=== PATIENT | male | born 1935 | race Caucasian/White ===

== ENCOUNTER 2020-08-19 20:49 | Inpatient (IN) | payer MEDICARE ==
--- NOTE | 2020-08-19 21:04 | ED ---
SOB HPI - General Chief Complaint: Shortness of Breath Stated Complaint: AILEEN Source: patient, EMS Mode of arrival: EMS Limitations: no limitations - History of Present Illness Initial Comments: Og is an 85-year-old male who presents to the ER today by ambulance from [facility]. Patient arrived at [facility] today after an admission to an outside hospital for treatment of osteomyelitis of the left toes. Patient has a PICC in place, and is receiving IV antibiotics. EMS was contacted night patient was found to have a fever, increased work of breathing and shortness of breath. Upon EMS arrival patient had oxygen saturation of 81% he was placed on CPAP for transport. Patient received 40 mg IV Lasix and a dose of Tylenol prior to coming to the ER. - Related Data Home Medications Medication Instructions Recorded Confirmed Allopurinol [Zyloprim] 100 mg PO DAILY@0800 08/19/20 08/19/20 Apixaban [Eliquis] 2.5 mg PO BID@0800,1700 08/19/20 08/19/20 INSULIN LISPRO (humaLOG) [humaLOG] See Protocol SQ ACHS 08/19/20 08/19/20 Insulin Glargine [Lantus] 15 unit SQ HS@2100 08/19/20 08/19/20 Insulin Glargine [Lantus] 20 unit SQ DAILY@0800 08/19/20 08/19/20 Lasix 10mg/Ml 40 mg IV ONCE 08/19/20 08/19/20 Levothyroxine Sodium [Synthroid] 100 mcg PO DAILY@0600 08/19/20 08/19/20 Magic Butt Paste 1 applic TOPICAL TID 08/19/20 08/19/20 Magnesium Hydroxide [Milk of 2,400 ml PO DAILY PRN 08/19/20 08/19/20 Magnesia] Na Phos,M-B/Na Phos,Di-Ba [Fleet 133 ml RECTAL DAILY PRN 08/19/20 08/19/20 Adult] Terazosin HCl [Hytrin] 10 mg PO DAILY@1700 08/19/20 08/19/20 amLODIPine [Norvasc] 10 mg PO DAILY@0800 08/19/20 08/19/20 bisacodyL [Dulcolax] 10 mg RECTAL DAILY PRN 08/19/20 08/19/20 hydrALAZINE HCL [Apresoline] 25 mg PO BID@0800,1700 08/19/20 08/19/20 Allergies Allergy/AdvReac Type Severity Reaction Status Date / Time No Known Allergies Allergy Verified 08/19/20 21:04 Review of Systems ROS Statement: Those systems with pertinent positive or pertinent negative responses have been documented in the HPI. ROS Other: All systems not noted in ROS Statement are negative. Past Medical History Past Medical History: Diabetes Mellitus, Hypertension, Renal Disease History of Any Multi-Drug Resistant Organisms: MRSA Date of last positivie culture/infection: 2020 Past Surgical History: No Surgical Hx Reported Past Psychological History: No Psychological Hx Reported Smoking Status: Former smoker Past Alcohol Use History: Rare Past Drug Use History: None Reported General Exam - General Exam Comments Initial Comments: Physical Exam GENERAL: Morbidly obese chronically ill-appearing gentleman in moderate respiratory distress HENT: Normocephalic, Atraumatic. EYES: PERRL, EOMI PULMONARY: Crackles in all lung reeves CARDIOVASCULAR: There is a regular rate and rhythm without any murmurs gallops or rubs. ABDOMEN: Obese, soft SKIN: Pale, skin color changes of bilateral lower extremities consistent with chronic venous stasis : Palacios catheter in place NEUROLOGIC: Patient is alert and oriented x3. Moving all extremities spontaneously MUSCULOSKELETAL: Chronic wound left toes PSYCHIATRIC: Normal psychiatric evaluation. Limitations: no limitations Course Vital Signs 08/19/20 08/19/20 08/19/20 20:52 21:20 22:38 Temperature 102.8 F H 100.8 F H Pulse Rate 83 Respiratory 20 22 Rate Blood Pressure 146/60 O2 Sat by Pulse 91 L Oximetry Medical Decision Making - Medical Decision Making Patient was seen and evaluated upon arrival emergency department except patient was noted to be in moderate respiratory distress appear to be in flash pulmonary edema he was placed on BiPAP with high settings due to his Oddi habitus Labs were obtained and resulted with multiple significant abnormalities including but not limited to leukocytosis likely related to osteomyelitis, mild hyperkalemia, elevated BUN and creatinine, hyponatremia The patient's respiratory status is improved significantly on BiPAP he's which more comfortable, heart rate has improved, oxygenation has improved Patient is agreeable to admission for treatment of congestive heart failure and flash pulmonary edema Patient care was discussed with Dr. Bran who accepts admission for Dr. astudillo, Dr. Wood on consult for pulmonology, requests consult to cardiology. - Lab Data Result diagrams: 08/19/20 21:35 08/19/20 21:35 Lab Results 08/19/20 08/19/20 08/19/20 Range/Units 21:35 21:35 21:35 WBC 21.3 H (3.8-10.6) k/uL RBC 3.85 L (4.30-5.90) m/uL Hgb 11.7 L (13.0-17.5) gm/dL Hct 35.7 L (39.0-53.0) % MCV 92.7 (80.0-100.0) fL MCH 30.4 (25.0-35.0) pg MCHC 32.8 (31.0-37.0) g/dL RDW 14.1 (11.5-15.5) % Plt Count 201 (150-450) k/uL MPV 7.9 Neutrophils % 91 % Lymphocytes % 2 % Monocytes % 7 % Eosinophils % 0 % Basophils % 0 % Neutrophils # 19.4 H (1.3-7.7) k/uL Lymphocytes # 0.4 L (1.0-4.8) k/uL Monocytes # 1.4 H (0-1.0) k/uL Eosinophils # 0.0 (0-0.7) k/uL Basophils # 0.0 (0-0.2) k/uL PT 10.6 (9.0-12.0) sec INR 1.0 (<1.2) APTT 28.1 (22.0-30.0) sec Sodium (137-145) mmol/L Potassium (3.5-5.1) mmol/L Chloride (98-107) mmol/L Carbon Dioxide (22-30) mmol/L Anion Gap mmol/L BUN (9-20) mg/dL Creatinine (0.66-1.25) mg/dL Est GFR (CKD-EPI)AfAm (>60 ml/min/1.73 sqM) Est GFR (CKD-EPI)NonAf (>60 ml/min/1.73 sqM) Glucose (74-99) mg/dL Plasma Lactic Acid Daniel (0.7-2.0) mmol/L Calcium (8.4-10.2) mg/dL Total Bilirubin (0.2-1.3) mg/dL AST (17-59) U/L ALT (4-49) U/L Alkaline Phosphatase (38-126) U/L Troponin I (0.000-0.034) ng/mL NT-Pro-B Natriuret Pep pg/mL Total Protein (6.3-8.2) g/dL Albumin (3.5-5.0) g/dL Urine Color Yellow Urine Appearance Cloudy (Clear) Urine pH 5.0 (5.0-8.0) Ur Specific Ethel 1.011 (1.001-1.035) Urine Protein 1+ H (Negative) Urine Glucose (UA) Negative (Negative) Urine Ketones Negative (Negative) Urine Blood Large H (Negative) Urine Nitrite Negative (Negative) Urine Bilirubin Negative (Negative) Urine Urobilinogen <2.0 (<2.0) mg/dL Ur Leukocyte Esterase Small H (Negative) Urine RBC >182 H (0-5) /hpf Urine WBC 4 (0-5) /hpf Ur Squamous Epith Cells <1 (0-4) /hpf Urine Bacteria Rare H (None) /hpf Urine Mucus Rare H (None) /hpf 08/19/20 08/19/20 08/19/20 Range/Units 21:35 21:35 21:35 WBC (3.8-10.6) k/uL RBC (4.30-5.90) m/uL Hgb (13.0-17.5) gm/dL Hct (39.0-53.0) % MCV (80.0-100.0) fL MCH (25.0-35.0) pg MCHC (31.0-37.0) g/dL RDW (11.5-15.5) % Plt Count (150-450) k/uL MPV Neutrophils % % Lymphocytes % % Monocytes % % Eosinophils % % Basophils % % Neutrophils # (1.3-7.7) k/uL Lymphocytes # (1.0-4.8) k/uL Monocytes # (0-1.0) k/uL Eosinophils # (0-0.7) k/uL Basophils # (0-0.2) k/uL PT (9.0-12.0) sec INR (<1.2) APTT (22.0-30.0) sec Sodium 127 L (137-145) mmol/L Potassium 5.3 H (3.5-5.1) mmol/L Chloride 102 (98-107) mmol/L Carbon Dioxide 16 L (22-30) mmol/L Anion Gap 9 mmol/L BUN 70 H (9-20) mg/dL Creatinine 2.53 H (0.66-1.25) mg/dL Est GFR (CKD-EPI)AfAm 26 (>60 ml/min/1.73 sqM) Est GFR (CKD-EPI)NonAf 22 (>60 ml/min/1.73 sqM) Glucose 260 H (74-99) mg/dL Plasma Lactic Acid Daniel 1.4 (0.7-2.0) mmol/L Calcium 8.5 (8.4-10.2) mg/dL Total Bilirubin 0.4 (0.2-1.3) mg/dL AST 30 (17-59) U/L ALT 22 (4-49) U/L Alkaline Phosphatase 84 (38-126) U/L Troponin I 0.034 (0.000-0.034) ng/mL NT-Pro-B Natriuret Pep pg/mL Total Protein 5.6 L (6.3-8.2) g/dL Albumin 2.6 L (3.5-5.0) g/dL Urine Color Urine Appearance (Clear) Urine pH (5.0-8.0) Ur Specific Ethel (1.001-1.035) Urine Protein (Negative) Urine Glucose (UA) (Negative) Urine Ketones (Negative) Urine Blood (Negative) Urine Nitrite (Negative) Urine Bilirubin (Negative) Urine Urobilinogen (<2.0) mg/dL Ur Leukocyte Esterase (Negative) Urine RBC (0-5) /hpf Urine WBC (0-5) /hpf Ur Squamous Epith Cells (0-4) /hpf Urine Bacteria (None) /hpf Urine Mucus (None) /hpf 08/19/20 Range/Units 21:35 WBC (3.8-10.6) k/uL RBC (4.30-5.90) m/uL Hgb (13.0-17.5) gm/dL Hct (39.0-53.0) % MCV (80.0-100.0) fL MCH (25.0-35.0) pg MCHC (31.0-37.0) g/dL RDW (11.5-15.5) % Plt Count (150-450) k/uL MPV Neutrophils % % Lymphocytes % % Monocytes % % Eosinophils % % Basophils % % Neutrophils # (1.3-7.7) k/uL Lymphocytes # (1.0-4.8) k/uL Monocytes # (0-1.0) k/uL Eosinophils # (0-0.7) k/uL Basophils # (0-0.2) k/uL PT (9.0-12.0) sec INR (<1.2) APTT (22.0-30.0) sec Sodium (137-145) mmol/L Potassium (3.5-5.1) mmol/L Chloride (98-107) mmol/L Carbon Dioxide (22-30) mmol/L Anion Gap mmol/L BUN (9-20) mg/dL Creatinine (0.66-1.25) mg/dL Est GFR (CKD-EPI)AfAm (>60 ml/min/1.73 sqM) Est GFR (CKD-EPI)NonAf (>60 ml/min/1.73 sqM) Glucose (74-99) mg/dL Plasma Lactic Acid Daniel (0.7-2.0) mmol/L Calcium (8.4-10.2) mg/dL Total Bilirubin (0.2-1.3) mg/dL AST (17-59) U/L ALT (4-49) U/L Alkaline Phosphatase (38-126) U/L Troponin I (0.000-0.034) ng/mL NT-Pro-B Natriuret Pep 3880 pg/mL Total Protein (6.3-8.2) g/dL Albumin (3.5-5.0) g/dL Urine Color Urine Appearance (Clear) Urine pH (5.0-8.0) Ur Specific Ethel (1.001-1.035) Urine Protein (Negative) Urine Glucose (UA) (Negative) Urine Ketones (Negative) Urine Blood (Negative) Urine Nitrite (Negative) Urine Bilirubin (Negative) Urine Urobilinogen (<2.0) mg/dL Ur Leukocyte Esterase (Negative) Urine RBC (0-5) /hpf Urine WBC (0-5) /hpf Ur Squamous Epith Cells (0-4) /hpf Urine Bacteria (None) /hpf Urine Mucus (None) /hpf - EKG Data -: EKG Interpreted by Me EKG Comments: EKG was obtained due to complaint of shortness of breath, EKG was obtained at 210, EKG is limited by significant respiratory artifact due to the patient's respiratory distress, rate is approximately 86, this is a narrow complex regular rhythm, I believe P waves are present however significant artifact limits further evaluation, there are no significant ST elevations or depressions or evidence of ischemia or infarction Disposition Clinical Impression: Flash pulmonary edema, Congestive heart failure, Osteomyelitis, Morbid obesity, Hyperglycemia due to type 2 diabetes mellitus Disposition: ADMITTED IP TO THIS HOSP Condition: Poor Referrals: Yaniv Fisher DO [Primary Care Provider] - 1-2 days
--- NOTE | 2020-08-19 21:54 | XR ---
EXAMINATION TYPE: XR chest 1V portable DATE OF EXAM: 08/19/2020 COMPARISON: None HISTORY: Short of breath TECHNIQUE: 2 views FINDINGS: There is pulmonary vascular congestion. Heart is enlarged. There is right central venous ca theter with tip in the superior vena cava. IMPRESSION: Congestive heart failure. There are probably bilateral pleural effusions. Exam limited by patient's size.
[2020-08-19 22:09] LABS: Basophils % (A) 0 %; Eosinophils % (A) 0 %; HCT 35.7 % (39.0-53.0); HGB 11.7 gm/dL (13.0-17.5); Lymphocytes # (A) 0.4 k/uL (1.0-4.8); Lymphocytes % (A) 2 %; MCH 30.4 pg (25.0-35.0); MCHC 32.8 g/dL (31.0-37.0); MCV 92.7 fL (80.0-100.0); Mean Platelet Volume 7.9; Monocytes # (A) 1.4 k/uL (0-1.0); Monocytes % (A) 7 %; Neutrophils # (A) 19.4 k/uL (1.3-7.7); Neutrophils % (A) 91 %; Platelet Count 201 k/uL (150-450); RBC 3.85 m/uL (4.30-5.90); RDW 14.1 % (11.5-15.5); WBC 21.3 k/uL (3.8-10.6)
[2020-08-19 22:21] LABS: Appearance,Urine Cloudy (Clear); Bacteria,Urine Rare /hpf; Bilirubin,Urine Negative (Negative); Blood,Urine Large (Negative); Color,Urine Yellow; Glucose,Urine (UA) Negative (Negative); Ketones,Urine Negative (Negative); Leukocyte Esterase,Urine Small (Negative); Mucus,Urine Rare /hpf; Nitrite,Urine Negative (Negative); Protein,Urine 1+ (Negative); RBC,Urine >182 /hpf (0-5); Specific Gravity,Urine 1.011 (1.001-1.035); Squamous Epithelial Cell,Urine <1 /hpf (0-4); Urobilinogen,Urine <2.0 mg/dL (<2.0); WBC,Urine 4 /hpf (0-5)
[2020-08-19 22:23] LABS: Partial Thromboplastin Time 28.1 sec (22.0-30.0); Prothrombin Time 10.6 sec (9.0-12.0)
[2020-08-19 22:24] LABS: Albumin 2.6 g/dL (3.5-5.0); Calcium 8.5 mg/dL (8.4-10.2); Potassium 5.3 mmol/L (3.5-5.1); Total Bilirubin 0.4 mg/dL (0.2-1.3); Total Protein 5.6 g/dL (6.3-8.2)
[2020-08-19] MEDS ORDERED: NALOXONE 0.4 MG/ML 1 ML VIAL IV PRN (22:58)
[2020-08-19] MEDS ORDERED: INSULIN REGULAR 100 UNIT/ML VIAL (IV) SQ ONE (23:02)
[2020-08-20] MEDS ORDERED: INSULIN ASPART (NovoLOG) 100 UNIT/ML VIAL SQ SCH (07:30)
[2020-08-20 08:35] LABS: Glucose,Whole Blood 254 mg/dL (75-99)
[2020-08-20] MEDS: hydrALAZINE HCL 25 MG TAB PO SCH ×2 (08:59→17:36)
[2020-08-20] MEDS: APIXABAN 2.5 MG TABLET PO SCH ×2 (08:59→17:36)
[2020-08-20] MEDS: LEVOTHYROXINE 100 MCG TAB PO SCH (08:59)
[2020-08-20] MEDS: amLODIPine 10 MG TAB PO SCH (09:00)
[2020-08-20] MEDS ORDERED: NON FORMULARY DRUG (Magic Butt Paste 1 APPLIC) TOPICAL SCH (09:00)
[2020-08-20] MEDS ORDERED: bisacodyL 10 MG SUPP RECTAL PRN (10:51)
--- NOTE | 2020-08-20 11:27 | P.CNPUL ---
History of Present Illness Consult date: 08/20/20 Reason for consult: dyspnea, hypoxemia Chief complaint: Shortness of breath desaturation History of present illness: Patient is a 85-year-old male presented in emergency department from [facility] why EMS, patient was diagnosed ostomy mellitus of left second toe has a PICC line and has been getting daptomycin, he arrived one day prior to numbing into the hospital, patient spiked a fever with increasing shortness of breath oxygen saturation dropped down to 81%, patient was transported to the emergency department for further evaluation oxygen saturation was just 81%, patient was placed on CPAP in emergency department was switched to BiPAP, 03/02 with 50% oxygen, patient has been on now 5 L oxygen feeling better, his past medical history is morbid obesity hypertension hypertensive cardiovascular disease diabetes mellitus history of MRSA infection, patient also has chronic atrial fibrillation on direct anticoagulant, patient has been noted to have leukocytosis with WBC count of 21,000 hyponatremia BUN/creatinine 70 and 2.53, bicarb is just 16, chest x-ray CHF-like finding with bilateral pleural effusion other significant labs include sodium of 127, BUN/creatinine of 70 and 2.53, Covid 19 is negative, Review of Systems All systems: negative Past Medical History Past Medical History: Diabetes Mellitus, Hypertension, Renal Disease History of Any Multi-Drug Resistant Organisms: MRSA Date of last positivie culture/infection: 2020 Past Surgical History: No Surgical Hx Reported Past Psychological History: No Psychological Hx Reported Smoking Status: Former smoker Past Alcohol Use History: Rare Past Drug Use History: None Reported Medications and Allergies Home Medications Medication Instructions Recorded Confirmed Type Allopurinol [Zyloprim] 100 mg PO DAILY@0800 08/19/20 08/19/20 History Apixaban [Eliquis] 2.5 mg PO BID@0800,1700 08/19/20 08/19/20 History INSULIN LISPRO (humaLOG) [humaLOG] See Protocol SQ ACHS 08/19/20 08/19/20 History Insulin Glargine [Lantus] 15 unit SQ HS@2100 08/19/20 08/19/20 History Insulin Glargine [Lantus] 20 unit SQ DAILY@0800 08/19/20 08/19/20 History Lasix 10mg/Ml 40 mg IV ONCE 08/19/20 08/19/20 History Levothyroxine Sodium [Synthroid] 100 mcg PO DAILY@0600 08/19/20 08/19/20 History Magic Butt Paste 1 applic TOPICAL TID 08/19/20 08/19/20 History Magnesium Hydroxide [Milk of 2,400 ml PO DAILY PRN 08/19/20 08/19/20 History Magnesia] Na Phos,M-B/Na Phos,Di-Ba [Fleet 133 ml RECTAL DAILY PRN 08/19/20 08/19/20 History Adult] Terazosin HCl [Hytrin] 10 mg PO DAILY@1700 08/19/20 08/19/20 History amLODIPine [Norvasc] 10 mg PO DAILY@0800 08/19/20 08/19/20 History bisacodyL [Dulcolax] 10 mg RECTAL DAILY PRN 08/19/20 08/19/20 History hydrALAZINE HCL [Apresoline] 25 mg PO BID@0800,1700 08/19/20 08/19/20 History Allergies Allergy/AdvReac Type Severity Reaction Status Date / Time No Known Allergies Allergy Verified 08/19/20 21:04 Physical Exam Vitals: Vital Signs Temp Pulse Resp BP Pulse Ox 08/20/20 11:16 66 20 117/71 91 L 08/20/20 09:42 64 20 121/59 91 L 08/20/20 09:08 75 18 123/68 08/20/20 03:01 98.7 F 08/20/20 01:53 69 18 120/56 97 08/19/20 23:21 73 18 120/56 97 08/19/20 22:38 100.8 F H 08/19/20 21:20 22 08/19/20 20:52 102.8 F H 83 20 146/60 91 L Intake and Output 08/19/20 08/20/20 08/20/20 22:59 06:59 14:59 Other: Weight 146.964 kg - Constitutional General appearance: mild distress, morbidly obese - EENT Eyes: PERRLA Ears: bilateral: normal - Neck Carotids: bilateral: upstroke normal - Respiratory Respiratory: bilateral: diminished, rales - Cardiovascular Rhythm: regular Heart sounds: normal: S1, S2 - Neurologic Neurologic: CNII-XII intact - Musculoskeletal Musculoskeletal: gait normal, generalized weakness, strength equal bilaterally - Psychiatric Psychiatric: A&O x's 3, appropriate affect, intact judgment & insight Results - Laboratory Findings CBC and BMP: 08/19/20 21:35 08/19/20 21:35 PT/INR, D-dimer PT 10.6 sec (9.0-12.0) 08/19/20 21:35 INR 1.0 (<1.2) 08/19/20 21:35 Abnormal lab findings: Abnormal Labs 08/19/20 08/19/20 08/19/20 21:35 21:35 21:35 WBC 21.3 H RBC 3.85 L Hgb 11.7 L Hct 35.7 L Neutrophils # 19.4 H Lymphocytes # 0.4 L Monocytes # 1.4 H Sodium 127 L Potassium 5.3 H Carbon Dioxide 16 L BUN 70 H Creatinine 2.53 H Glucose 260 H POC Glucose (mg/dL) Total Protein 5.6 L Albumin 2.6 L Urine Protein 1+ H Urine Blood Large H Ur Leukocyte Esterase Small H Urine RBC >182 H Urine Bacteria Rare H Urine Mucus Rare H 08/20/20 08:33 WBC RBC Hgb Hct Neutrophils # Lymphocytes # Monocytes # Sodium Potassium Carbon Dioxide BUN Creatinine Glucose POC Glucose (mg/dL) 254 H Total Protein Albumin Urine Protein Urine Blood Ur Leukocyte Esterase Urine RBC Urine Bacteria Urine Mucus - Diagnostic Findings Chest x-ray: report reviewed, image reviewed Assessment and Plan Assessment: Acute exacerbation of congestive heart failure likely acute on chronic systolic heart failure Acute hypoxic respiratory failure Likely sleep disorder breathing and sleep apnea Osteomyelitis Hypertension hypertensive cardiovascular disease Plan: Gentle diuresis BiPAP support each night and when necessary during the day Supplemental oxygen Continue IV daptomycin Titrated oxygen down as tolerated Patient has been resumed on his home medications Monitor clinical course closely further plan of care as per clinical response of the patient Time with Patient: Greater than 30
[2020-08-20] MEDS ORDERED: INSULIN DETEMIR (LEVEMIR) 100 UNIT/ML SYR SQ SCH (11:30)
--- NOTE | 2020-08-20 11:40 | P.CRDCN ---
History of Present Illness Consult date: 08/20/20 Chief complaint: Shortness of breath History of present illness: This is a very pleasant 85-year-old gentleman with a past medical history signif icant for morbid obesity and paroxysmal atrial fibrillation as well as hypertension and dyslipidemia and diabetes and chronic kidney disease was transferred from [facility] facility to the emergency department here for further evaluation of shortness of breath. The patient was admitted to [facility] care facility for rehabilitation because he was diagnosed with osteomyelitis of the left foot. He had a PICC line placed. He was receiving antibiotic. Apparently at the senior care the patient was not feeling well. He was more short of breath and potentially he was experiencing fever. EMS was called and the patient was found to be de-satting and at that point he was transferred to the emergency department.. He denies any symptoms of chest pain or chest discomfort. He stated that he was experiencing shortness of breath. No dizziness or lightheadedness and no feeling of heart racing or fluttering. He was placed on BiPAP here with improvement in his oxygen saturation. The chest x-ray showed findings consistent was heart failure. The EKG showed sinus rhythm with diffuse baseline artifact. WBC came in to be elevated. The patient also troponin came in to be elevated. With abnormal was his baseline renal function stents at. No prior echocardiogram. He was seen by the pulmonary service. When he was examined this morning is very hard to tell if he does have a JVD giving his body habitus. He does have chronic bilateral lower extended the skin changes and mild bilateral lower extremities edema. Past Medical History Past Medical History: Diabetes Mellitus, Hypertension, Renal Disease History of Any Multi-Drug Resistant Organisms: MRSA Date of last positivie culture/infection: 2020 Past Surgical History: No Surgical Hx Reported Past Psychological History: No Psychological Hx Reported Smoking Status: Former smoker Past Alcohol Use History: Rare Past Drug Use History: None Reported Medications and Allergies Home Medications Medication Instructions Recorded Confirmed Type Allopurinol [Zyloprim] 100 mg PO DAILY@0800 08/19/20 08/19/20 History Apixaban [Eliquis] 2.5 mg PO BID@0800,1700 08/19/20 08/19/20 History INSULIN LISPRO (humaLOG) [humaLOG] See Protocol SQ ACHS 08/19/20 08/19/20 History Insulin Glargine [Lantus] 15 unit SQ HS@2100 08/19/20 08/19/20 History Insulin Glargine [Lantus] 20 unit SQ DAILY@0800 08/19/20 08/19/20 History Lasix 10mg/Ml 40 mg IV ONCE 08/19/20 08/19/20 History Levothyroxine Sodium [Synthroid] 100 mcg PO DAILY@0600 08/19/20 08/19/20 History Magic Butt Paste 1 applic TOPICAL TID 08/19/20 08/19/20 History Magnesium Hydroxide [Milk of 2,400 ml PO DAILY PRN 08/19/20 08/19/20 History Magnesia] Na Phos,M-B/Na Phos,Di-Ba [Fleet 133 ml RECTAL DAILY PRN 08/19/20 08/19/20 History Adult] Terazosin HCl [Hytrin] 10 mg PO DAILY@1700 08/19/20 08/19/20 History amLODIPine [Norvasc] 10 mg PO DAILY@0800 08/19/20 08/19/20 History bisacodyL [Dulcolax] 10 mg RECTAL DAILY PRN 08/19/20 08/19/20 History hydrALAZINE HCL [Apresoline] 25 mg PO BID@0800,1700 08/19/20 08/19/20 History Allergies Allergy/AdvReac Type Severity Reaction Status Date / Time No Known Allergies Allergy Verified 08/19/20 21:04 Physical Exam Vitals: Vital Signs Temp Pulse Resp BP Pulse Ox 08/20/20 11:16 66 20 117/71 91 L 08/20/20 09:42 64 20 121/59 91 L 08/20/20 09:08 75 18 123/68 08/20/20 03:01 98.7 F 08/20/20 01:53 69 18 120/56 97 08/19/20 23:21 73 18 120/56 97 08/19/20 22:38 100.8 F H 08/19/20 21:20 22 08/19/20 20:52 102.8 F H 83 20 146/60 91 L Intake and Output 08/19/20 08/20/20 08/20/20 22:59 06:59 14:59 Other: Weight 146.964 kg - Constitutional General appearance: no acute distress - Respiratory Respiratory: bilateral: diminished - Cardiovascular Rhythm: regular Heart sounds: normal: S1, S2 Abnormal Heart Sounds: systolic murmur Results 08/19/20 21:35 08/19/20 21:35 Cardiac Enzymes 08/19/20 08/19/20 Range/Units 21:35 21:35 AST 30 (17-59) U/L Troponin I 0.034 (0.000-0.034) ng/mL Coagulation 08/19/20 Range/Units 21:35 PT 10.6 (9.0-12.0) sec APTT 28.1 (22.0-30.0) sec CBC 08/19/20 Range/Units 21:35 WBC 21.3 H (3.8-10.6) k/uL RBC 3.85 L (4.30-5.90) m/uL Hgb 11.7 L (13.0-17.5) gm/dL Hct 35.7 L (39.0-53.0) % Plt Count 201 (150-450) k/uL Comprehensive Metabolic Panel 08/19/20 Range/Units 21:35 Sodium 127 L (137-145) mmol/L Potassium 5.3 H (3.5-5.1) mmol/L Chloride 102 (98-107) mmol/L Carbon Dioxide 16 L (22-30) mmol/L BUN 70 H (9-20) mg/dL Creatinine 2.53 H (0.66-1.25) mg/dL Glucose 260 H (74-99) mg/dL Calcium 8.5 (8.4-10.2) mg/dL AST 30 (17-59) U/L ALT 22 (4-49) U/L Alkaline Phosphatase 84 (38-126) U/L Total Protein 5.6 L (6.3-8.2) g/dL Albumin 2.6 L (3.5-5.0) g/dL Current Medications Generic Name Dose Route Start Last Admin Trade Name Freq PRN Reason Stop Dose Admin Allopurinol 100 mg 08/20/20 08:00 Allopurinol 100 Mg Tab PO DAILY@0800 [facility] Amlodipine Besylate 10 mg 08/20/20 08:00 08/20/20 09:00 Amlodipine 10 Mg Tab PO 10 mg DAILY@0800 [facility] Administration Apixaban 2.5 mg 08/20/20 08:00 08/20/20 08:59 Apixaban 2.5 Mg Tablet PO 2.5 mg BID@0800,1700 [facility] Administration Bisacodyl 10 mg 08/20/20 10:51 Bisacodyl 10 Mg Supp RECTAL DAILY PRN Constipation Doxazosin Mesylate 8 mg 08/20/20 17:00 Doxazosin 4 Mg Tab PO DAILY@1700 [facility] Hydralazine HCl 25 mg 08/20/20 08:00 08/20/20 08:59 Hydralazine Hcl 25 Mg Tab PO 25 mg BID@0800,1700 [facility] Administration Daptomycin 800 mg/ Sodium 50 mls @ 100 mls/hr 08/20/20 08:00 08/20/20 09:40 Chloride IVPB 100 mls/hr Q24H LEONARDO Administration Protocol Insulin Aspart 0 unit 08/20/20 12:30 Insulin Aspart (Novolog) 100 Unit/Ml Vial SQ ACHS [facility] Protocol Insulin Detemir 20 unit 08/20/20 11:30 Insulin Detemir (Levemir) 100 Unit/Ml Syr SQ DAILY@0800 [facility] Levothyroxine Sodium 100 mcg 08/20/20 06:00 08/20/20 08:59 Levothyroxine 100 Mcg Tab PO 100 mcg DAILY@0600 [facility] Administration Naloxone HCl 0.2 mg 08/19/20 22:58 Naloxone 0.4 Mg/Ml 1 Ml Vial IV Q2M PRN Opioid Reversal Intake and Output 08/19/20 08/20/20 08/20/20 22:59 06:59 14:59 Other: Weight 146.964 kg 08/19/20 21:35 08/19/20 21:35 Assessment and Plan Assessment: Assessment #1 acute hypoxic respiratory failure #2 probably underlying pneumonia #3 very mild component of heart failure if there is any #4 paroxysmal atrial fibrillation #5 morbid obesity #6 multiple comorbid conditions #7 hypertension #8 chronic kidney disease Plan #1 I would avoid any IV diuretics at this point giving the patient abnormal creatinine and the symptoms which consistent with a pneumonia more than heart failure #2 if he did not respond to antibiotic we might consider doing a right heart catheterization to assess his filling pressure #3 obtain an echocardiogram was Doppler #4 monitor the kidney function #5 follow-up with the patient
[2020-08-20 12:25] LABS: Glucose,Whole Blood 277 mg/dL (75-99)
[2020-08-20] MEDS: INSULIN ASPART (NovoLOG) 100 UNIT/ML VIAL SQ SCH ×3 (12:57→21:05)
[2020-08-20] MEDS: CEFEPIME 2 GM in SODIUM CHLORIDE 0.9% 100 ML IVPB SCH (13:51)
[2020-08-20] MEDS: SODIUM CHLORIDE 0.9% 1,000 ML IV SCH (13:52)
--- NOTE | 2020-08-20 16:42 | US ---
EXAMINATION TYPE: US kidneys/renal and bladder DATE OF EXAM: 08/20/2020 COMPARISON: NONE CLINICAL HISTORY: renal failure. Renal failure limited due to body habitus EXAM MEASUREMENTS: Right Kidney: 10.9 x 5.1 x 5.0 cm Left Kidney: 9.7 x 5.2 x 3.3 cm Right Kidney: No hydronephrosis Left Kidney: No hydronephrosis Bladder: Not visualized Bilateral Jets seen: No There is loss of normal cortical medullary differentiation bilaterally, there is increased cortical e chogenicity, there is cortical thinning. Exam is somewhat limited technically. IMPRESSION: Exam is limited. Findings consistent with medical renal disease.
[2020-08-20 17:08] LABS: Glucose,Whole Blood 223 mg/dL (75-99)
[2020-08-20] MEDS: DOXAZOSIN 4 MG TAB PO SCH (17:36)
[2020-08-20] MEDS: allopurinoL 100 MG TAB PO SCH (17:36)
--- NOTE | 2020-08-20 20:33 | P.HPIM ---
History of Present Illness H&P Date: 08/20/20 Chief Complaint: Short of breath History of presenting complaint: This is a pleasant 85-year-old patient of Dr. Fisher. Chronic stable medical conditions include diabetes, hypertension. Patient was at [facility] from August 13 through August 18. With left second toe osteomyelitis/MRSA- patient to get IV daptomycin 800 mg a day for 6 weeks from August 19.. New-onset of atrial fibrillation, has underlying chronic kidney disease stage III. Yesterday patient has significant urinary retention and [facility] and had a Palacios catheter placed. Has BPH. Also got a bedsore. Peripheral neuropathy hypothyroid gout. Patient now presents with increasing shortness of breath. Cough with little sputum. Fever. Rather tired. Review of systems: GEN.: Tired, fever EYES: None HEENT: None NECK: None RESPIRATORY: As above CARDIOVASCULAR: None GASTROINTESTINAL: None GENITOURINARY: Palacios catheter placed 24 hours ago. MUSCULOSKELETAL: Joint pains LYMPHATICS: None HEMATOLOGICAL: None PSYCHIATRY: None NEUROLOGICAL: None Past medical history to include: Left second toe ostium mellitus/MRSA being currently treated, atrial fibrillation, chronic kidney disease stage III, BPH with urinary retention now with a Palacios catheter, diabetes type 2, peripheral neuropathy, hypothyroid, gout Social history: Patient smoked for a few years stopped quite a few years ago. Alcohol rarely. Currently at [facility]. Family history: Reviewed, noncontributory to presentation Physical examination: VITAL SIGNS: 102.8, 83, 20, 1 46 x 60, 91% on 15 L nonrebreather upon present ation GENERAL: BMI 49.3, laying in bed, tired, awake. EYES: Pupils equal. Conjunctiva normal. HEENT: External appearance of nose and ears normal, oral cavity grossly normal. NECK: JVD not raised; masses not palpable. HEART: First and second heart sounds are normal; no edema. LUNGS:[ Respiratory rate increased; decreased breath sounds, possible crackles ABDOMEN: Soft, nontender, liver spleen not palpable, no masses palpable. Palacios catheter PSYCH: Alert and oriented x3; mood and affect tiredl. MUSCULAR skeletal: Evidence of OA NEUROLOGICAL: Cranial nerves grossly intact; no facial asymmetry, power and sensation grossly intact. LYMPHATICS: No lymph nodes palpable in the axilla and neck INVESTIGATIONS, reviewed in the clinical context: WBC 21.3 hemoglobin 11.7 platelets 201 sodium 127 potassium 5.3 bun 70 creatinine 2.53 glucose 260 proBNP 3880 troponin I 0.034 UA positive for small leukoesterase, RBC greater than 182 Coronavirus [PCR]-not detected EKG tracing personally reviewed by me-normal sinus rhythm, with some possible ST segment changes Chest x-ray film personally reviewed by me-underpenetrated. Possibly infiltrate. Possible effusion Assessment and plan: -Probable pneumonia suspected gram-negative organism. Patient started IV cefepime -Sepsis from pneumonia On IV antibiotics and fluids -Essential hypertension On hydralazine -Diabetes mellitus type 2, uncontrolled with hyperglycemia We'll place Levemir 28 units in the morning. Follow with sliding scale. -Hypothyroid Continue with Synthroid -BPH with bladder outflow obstruction Palacios catheter was placed August 19. add Flomax. DC trial of Palcaios in 48 hours -Second toe acute osteomyelitis with MRSA, secondary to foreign body Patient to continue 6 weeks of IV daptomycin 800 mg a day from August 19 -Paroxysmal atrial flutter fibrillation currently in sinus rhythm Continue with eliquis -Chronic gout Continue with allopurinol -Hyponatremia Follow labs Patient started IV cefepime. IV fluids. Consultation made to pulmonary, ID. Home medications resumed. Accu-Cheks will be followed. Care was discussed with the patient. Doubt congestive heart failure. Given the complexity and severity of patient's condition expect the patient to be in the hospital at least for 2 overnights Past Medical History Past Medical History: Diabetes Mellitus, Hypertension, Renal Disease History of Any Multi-Drug Resistant Organisms: MRSA Date of last positivie culture/infection: 2020 Past Surgical History: No Surgical Hx Reported Past Psychological History: No Psychological Hx Reported Smoking Status: Former smoker Past Alcohol Use History: Rare Past Drug Use History: None Reported - Past Family History Father Family Medical History: No Reported History Mother Family Medical History: No Reported History Medications and Allergies Home Medications Medication Instructions Recorded Confirmed Type Allopurinol [Zyloprim] 100 mg PO DAILY@0800 08/19/20 08/19/20 History Apixaban [Eliquis] 2.5 mg PO BID@0800,1700 08/19/20 08/19/20 History INSULIN LISPRO (humaLOG) [humaLOG] See Protocol SQ ACHS 08/19/20 08/19/20 History Insulin Glargine [Lantus] 15 unit SQ HS@2100 08/19/20 08/19/20 History Insulin Glargine [Lantus] 20 unit SQ DAILY@0800 08/19/20 08/19/20 History Lasix 10mg/Ml 40 mg IV ONCE 08/19/20 08/19/20 History Levothyroxine Sodium [Synthroid] 100 mcg PO DAILY@0600 08/19/20 08/19/20 History Magic Butt Paste 1 applic TOPICAL TID 08/19/20 08/19/20 History Magnesium Hydroxide [Milk of 2,400 ml PO DAILY PRN 08/19/20 08/19/20 History Magnesia] Na Phos,M-B/Na Phos,Di-Ba [Fleet 133 ml RECTAL DAILY PRN 08/19/20 08/19/20 Hist ory Adult] Terazosin HCl [Hytrin] 10 mg PO DAILY@1700 08/19/20 08/19/20 History amLODIPine [Norvasc] 10 mg PO DAILY@0800 08/19/20 08/19/20 History bisacodyL [Dulcolax] 10 mg RECTAL DAILY PRN 08/19/20 08/19/20 History hydrALAZINE HCL [Apresoline] 25 mg PO BID@0800,1700 08/19/20 08/19/20 History Allergies Allergy/AdvReac Type Severity Reaction Status Date / Time No Known Allergies Allergy Verified 08/19/20 21:04 Physical Exam Vitals: Vital Signs Temp Pulse Resp BP Pulse Ox 08/20/20 09:42 64 20 121/59 91 L 08/20/20 09:08 75 18 123/68 08/20/20 03:01 98.7 F 08/20/20 01:53 69 18 120/56 97 08/19/20 23:21 73 18 120/56 97 08/19/20 22:38 100.8 F H 08/19/20 21:20 22 08/19/20 20:52 102.8 F H 83 20 146/60 91 L Intake and Output 08/19/20 08/20/20 08/20/20 22:59 06:59 14:59 Other: Weight 146.964 kg Results CBC & Chem 7: 08/19/20 21:35 08/19/20 21:35 Labs: Abnormal Lab Results - Last 24 Hours (Table) 08/19/20 08/19/20 08/19/20 Range/Units 21:35 21:35 21:35 WBC 21.3 H (3.8-10.6) k/uL RBC 3.85 L (4.30-5.90) m/uL Hgb 11.7 L (13.0-17.5) gm/dL Hct 35.7 L (39.0-53.0) % Neutrophils # 19.4 H (1.3-7.7) k/uL Lymphocytes # 0.4 L (1.0-4.8) k/uL Monocytes # 1.4 H (0-1.0) k/uL Sodium 127 L (137-145) mmol/L Potassium 5.3 H (3.5-5.1) mmol/L Carbon Dioxide 16 L (22-30) mmol/L BUN 70 H (9-20) mg/dL Creatinine 2.53 H (0.66-1.25) mg/dL Glucose 260 H (74-99) mg/dL POC Glucose (mg/dL) (75-99) mg/dL Total Protein 5.6 L (6.3-8.2) g/dL Albumin 2.6 L (3.5-5.0) g/dL Urine Protein 1+ H (Negative) Urine Blood Large H (Negative) Ur Leukocyte Esterase Small H (Negative) Urine RBC >182 H (0-5) /hpf Urine Bacteria Rare H (None) /hpf Urine Mucus Rare H (None) /hpf 08/20/20 Range/Units 08:33 WBC (3.8-10.6) k/uL RBC (4.30-5.90) m/uL Hgb (13.0-17.5) gm/dL Hct (39.0-53.0) % Neutrophils # (1.3-7.7) k/uL Lymphocytes # (1.0-4.8) k/uL Monocytes # (0-1.0) k/uL Sodium (137-145) mmol/L Potassium (3.5-5.1) mmol/L Carbon Dioxide (22-30) mmol/L BUN (9-20) mg/dL Creatinine (0.66-1.25) mg/dL Glucose (74-99) mg/dL POC Glucose (mg/dL) 254 H (75-99) mg/dL Total Protein (6.3-8.2) g/dL Albumin (3.5-5.0) g/dL Urine Protein (Negative) Urine Blood (Negative) Ur Leukocyte Esterase (Negative) Urine RBC (0-5) /hpf Urine Bacteria (None) /hpf Urine Mucus (None) /hpf
[2020-08-20 20:56] LABS: Glucose,Whole Blood 165 mg/dL (75-99)
[2020-08-20] MEDS: TAMSULOSIN 0.4 MG CAP.ER.24H PO SCH (21:05)
[2020-08-21] MEDS: CEFEPIME 2 GM in SODIUM CHLORIDE 0.9% 100 ML IVPB SCH (02:16)
[2020-08-21 03:21] LABS: Glucose,Whole Blood 171 mg/dL (75-99)
[2020-08-21] MEDS: SODIUM CHLORIDE 0.9% 1,000 ML IV SCH ×2 (04:27→17:55)
[2020-08-21 06:24] LABS: Glucose,Whole Blood 158 mg/dL (75-99)
[2020-08-21] MEDS: LEVOTHYROXINE 100 MCG TAB PO SCH (06:32)
[2020-08-21] MEDS: INSULIN ASPART (NovoLOG) 100 UNIT/ML VIAL SQ SCH ×4 (06:32→21:06)
[2020-08-21 07:54] LABS: Basophils % (A) 0 %; Eosinophils # (A) 0.1 k/uL (0-0.7); Eosinophils % (A) 1 %; HCT 35.8 % (39.0-53.0); HGB 11.6 gm/dL (13.0-17.5); Lymphocytes # (A) 1.1 k/uL (1.0-4.8); Lymphocytes % (A) 7 %; MCH 30.2 pg (25.0-35.0); MCHC 32.3 g/dL (31.0-37.0); MCV 93.6 fL (80.0-100.0); Mean Platelet Volume 7.7; Monocytes # (A) 0.8 k/uL (0-1.0); Monocytes % (A) 5 %; Neutrophils # (A) 13.4 k/uL (1.3-7.7); Neutrophils % (A) 87 %; Platelet Count 231 k/uL (150-450); RBC 3.82 m/uL (4.30-5.90); WBC 15.5 k/uL (3.8-10.6)
[2020-08-21] MEDS ORDERED: INSULIN DETEMIR (LEVEMIR) 100 UNIT/ML SYR SQ SCH (08:00)
[2020-08-21 08:07] LABS: Calcium 8.4 mg/dL (8.4-10.2)
[2020-08-21] MEDS: hydrALAZINE HCL 25 MG TAB PO SCH ×2 (09:17→17:55)
[2020-08-21] MEDS: APIXABAN 2.5 MG TABLET PO SCH ×2 (09:17→17:55)
[2020-08-21] MEDS: amLODIPine 10 MG TAB PO SCH (09:17)
[2020-08-21] MEDS: allopurinoL 100 MG TAB PO SCH (09:18)
--- NOTE | 2020-08-21 11:48 | P.PN ---
Subjective This is a pleasant 85-year-old male past medical history significant for paroxysmal atrial fibrillation, hypertension, dyslipidemia, diabetes mellitus, chronic kidney disease and morbid obesity. He is seen and examined sitting up in bed in no acute distress. He states overall his breathing seems to have improved from admission however not back to baseline entirely. Blood pressure 143/70 heart rate 66 afebrile maintaining oxygen saturation on nasal cannula. Laboratory data reviewed, WBC 15.5, hemoglobin 11.6, platelets 231, sodium 131, potassium 5, creatinine 2.67. GENERAL: Well-appearing, well-nourished and in no acute distress. Morbid obesity. NECK: Supple without JVD or thyromegaly. LUNGS: Breath sounds clear to auscultation bilaterally. Respiration equal and unlabored. No wheezes, rales or rhonchi. Diminished bilaterally. HEART: Regular rate and rhythm with systolic ejection murmur at the base, no rubs or gallops. S1 and S2 heard. EXTREMITIES: Normal range of motion, trace lower extremity edema. No clubbing or cyanosis. Peripheral pulses intact. ASSESSMENT Shortness of breath likely related to underlying pneumonia Leukocytosis COPD Paroxysmal atrial fibrillation Chronic kidney disease Hypertension Dyslipidemia Diabetes mellitus PLAN Continue current medical regimen. Echocardiogram has been obtained and will be reviewed. Further recommendations to follow based upon clinical course. Nurse Practitioner note has been reviewed, I agree with a documented findings and plan of care. Patient was seen and examined. Objective - Vital Signs Vital signs: Vital Signs Temp 98.0 F 08/21/20 08:00 Pulse 66 08/21/20 08:00 Resp 18 08/21/20 04:00 BP 143/70 08/21/20 08:00 Pulse Ox 88 L 08/21/20 08:00 Intake & Output 08/20/20 08/21/20 08/21/20 18:59 06:59 18:59 Intake Total 180 340 Output Total 750 575 350 Balance -570 -235 -350 Weight 146.964 kg 105 kg Intake: Intake, IV Titration 240 Amount Sodium Chloride 0.9% 1, 240 000 ml @ 75 mls/hr IV . [id number] [facility] Rx#:[id number] Oral 180 100 Output: Urine 750 575 350 Other: Voiding Method Indwelling Catheter Indwelling Catheter - Labs CBC & Chem 7: 08/21/20 07:11 08/21/20 07:11 Labs: Abnormal Lab Results - Last 24 Hours (Table) 08/20/20 08/20/20 08/20/20 Range/Units 12:23 17:06 20:42 WBC (3.8-10.6) k/uL RBC (4.30-5.90) m/uL Hgb (13.0-17.5) gm/dL Hct (39.0-53.0) % Neutrophils # (1.3-7.7) k/uL Sodium (137-145) mmol/L Carbon Dioxide (22-30) mmol/L BUN (9-20) mg/dL Creatinine (0.66-1.25) mg/dL Glucose (74-99) mg/dL POC Glucose (mg/dL) 277 H 223 H 165 H (75-99) mg/dL 08/21/20 08/21/20 08/21/20 Range/Units 03:19 06:18 07:11 WBC 15.5 H (3.8-10.6) k/uL RBC 3.82 L (4.30-5.90) m/uL Hgb 11.6 L (13.0-17.5) gm/dL Hct 35.8 L (39.0-53.0) % Neutrophils # 13.4 H (1.3-7.7) k/uL Sodium (137-145) mmol/L Carbon Dioxide (22-30) mmol/L BUN (9-20) mg/dL Creatinine (0.66-1.25) mg/dL Glucose (74-99) mg/dL POC Glucose (mg/dL) 171 H 158 H (75-99) mg/dL 08/21/20 Range/Units 07:11 WBC (3.8-10.6) k/uL RBC (4.30-5.90) m/uL Hgb (13.0-17.5) gm/dL Hct (39.0-53.0) % Neutrophils # (1.3-7.7) k/uL Sodium 131 L (137-145) mmol/L Carbon Dioxide 18 L (22-30) mmol/L BUN 78 H (9-20) mg/dL Creatinine 2.67 H (0.66-1.25) mg/dL Glucose 152 H (74-99) mg/dL POC Glucose (mg/dL) (75-99) mg/dL Microbiology - Last 24 Hours (Table) 08/19/20 21:35 Blood Culture - Preliminary Blood No Growth after 24 hours 08/19/20 21:35 Blood Culture - Preliminary Blood No Growth after 24 hours
[2020-08-21 12:05] LABS: Glucose,Whole Blood 213 mg/dL (75-99)
[2020-08-21] MEDS: CEFEPIME 1 GM in SODIUM CHLORIDE 0.9% 50 ML IVPB SCH (13:50)
[2020-08-21 15:21] VITALS: BMI 35.2
--- NOTE | 2020-08-21 15:21 | P.PN ---
Subjective Progress Note Date: 08/21/20 Principal diagnosis: Acute exacerbation of congestive heart failure likely acute on chronic systolic heart failure Acute hypoxic respiratory failure Likely sleep disorder breathing and sleep apnea Osteomyelitis of left second toe Hypertension hypertensive cardiovascular disease 08/21/2020, patient seen eval examined, remains short of breath on 8 L of oxygen patient is on broad-spectrum antibiotics with cefapime as well as daptomycin, shortness breath slightly better patient is being diuresed, remains on broad- spectrum antibiotics follow clinical course closely, repeat chest x-ray tomorrow Patient is a 85-year-old male presented in emergency department from [facility], patient was diagnosed ostomy mellitus of left second toe has a PICC line and has been getting daptomycin, he arrived one day prior to numbing into the hospital, patient spiked a fever with increasing shortness of breath oxygen saturation dropped down to 81%, patient was transported to the emergency department for further evaluation oxygen saturation was just 81%, patient was placed on CPAP in emergency department was switched to BiPAP, 03/02 with 50% oxygen, patient has been on now 5 L oxygen feeling better, his past medical history is morbid obesity hypertension hypertensive cardiovascular disease diabetes mellitus history of MRSA infection, patient also has chronic atrial fibrillation on direct anticoagulant, patient has been noted to have leukocytosis with WBC count of 21,000 hyponatremia BUN/creatinine 70 and 2.53, bicarb is just 16, chest x-ray CHF-like finding with bilateral pleural effusion other significant labs include sodium of 127, BUN/creatinine of 70 and 2.53, Covid 19 is negative, Objective - Vital Signs Vital signs: Vital Signs Temp 98.0 F 08/21/20 08:00 Pulse 65 08/21/20 12:00 Resp 18 08/21/20 04:00 BP 140/65 08/21/20 12:00 Pulse Ox 87 L 08/21/20 12:00 Intake & Output 08/20/20 08/21/20 08/21/20 18:59 06:59 18:59 Intake Total 180 340 240 Output Total 750 575 350 Balance -570 -235 -110 Weight 146.964 kg 105 kg Intake: Intake, IV Titration 240 Amount Sodium Chloride 0.9% 1, 240 000 ml @ 75 mls/hr IV . [id number] [facility] Rx#:[id number] Oral 180 100 240 Output: Urine 750 575 350 Other: Voiding Method Indwelling Catheter Indwelling Catheter - Exam - Constitutional General appearance: mild distress, morbidly obese - EENT Eyes: PERRLA Ears: bilateral: normal - Neck Carotids: bilateral: upstroke normal - Respiratory Respiratory: bilateral: diminished, rales - Cardiovascular Rhythm: regular Heart sounds: normal: S1, S2 - Neurologic Neurologic: CNII-XII intact - Musculoskeletal Musculoskeletal: gait normal, generalized weakness, strength equal bilaterally - Psychiatric Psychiatric: A&O x's 3, appropriate affect, intact judgment & insight - Labs CBC & Chem 7: 08/21/20 07:11 08/21/20 07:11 Labs: Abnormal Lab Results - Last 24 Hours (Table) 08/20/20 08/20/20 08/21/20 Range/Units 17:06 20:42 03:19 WBC (3.8-10.6) k/uL RBC (4.30-5.90) m/uL Hgb (13.0-17.5) gm/dL Hct (39.0-53.0) % Neutrophils # (1.3-7.7) k/uL Sodium (137-145) mmol/L Carbon Dioxide (22-30) mmol/L BUN (9-20) mg/dL Creatinine (0.66-1.25) mg/dL Glucose (74-99) mg/dL POC Glucose (mg/dL) 223 H 165 H 171 H (75-99) mg/dL 08/21/20 08/21/20 08/21/20 Range/Units 06:18 07:11 07:11 WBC 15.5 H (3.8-10.6) k/uL RBC 3.82 L (4.30-5.90) m/uL Hgb 11.6 L (13.0-17.5) gm/dL Hct 35.8 L (39.0-53.0) % Neutrophils # 13.4 H (1.3-7.7) k/uL Sodium 131 L (137-145) mmol/L Carbon Dioxide 18 L (22-30) mmol/L BUN 78 H (9-20) mg/dL Creatinine 2.67 H (0.66-1.25) mg/dL Glucose 152 H (74-99) mg/dL POC Glucose (mg/dL) 158 H (75-99) mg/dL 08/21/20 Range/Units 11:59 WBC (3.8-10.6) k/uL RBC (4.30-5.90) m/uL Hgb (13.0-17.5) gm/dL Hct (39.0-53.0) % Neutrophils # (1.3-7.7) k/uL Sodium (137-145) mmol/L Carbon Dioxide (22-30) mmol/L BUN (9-20) mg/dL Creatinine (0.66-1.25) mg/dL Glucose (74-99) mg/dL POC Glucose (mg/dL) 213 H (75-99) mg/dL Microbiology - Last 24 Hours (Table) 08/19/20 21:35 Blood Culture - Preliminary Blood No Growth after 24 hours 08/19/20 21:35 Blood Culture - Preliminary Blood No Growth after 24 hours Assessment and Plan Assessment: Bilateral pneumonia likely mixed bacterial Acute exacerbation of congestive heart failure likely acute on chronic systolic heart failure Acute hypoxic respiratory failure Likely sleep disorder breathing and sleep apnea Osteomyelitis Hypertension hypertensive cardiovascular disease Plan: Gentle diuresis BiPAP support each night and when necessary during the day Supplemental oxygen Continue IV daptomycin with Cefapime Titrated oxygen down as tolerated Continue home medications Monitor clinical course closely further plan of care as per clinical response of the patient Time with Patient: Greater than 30
--- NOTE | 2020-08-21 15:31 | P.PN ---
Progress Note - Text Progress Note Date: 08/21/20 Chief Complaint: Short of breath History of presenting complaint: This is a pleasant 85-year-old patient of Dr. Fisher. Chronic stable medical conditions include diabetes, hypertension. Patient was at [facility] from August 13 through August 18. With left second toe osteomyelitis/MRSA- patient to get IV daptomycin 800 mg a day for 6 weeks from August 19.. New-onset of atrial fibrillation, has underlying chronic kidney disease stage III. Yesterday patient has significant urinary retention and [facility] and had a Palacios catheter placed. Has BPH. Also got a bedsore. Peripheral neuropathy hypothyroid gout. Patient now presents with increasing shortness of breath. Cough with little sputum. Fever. Rather tired. Admitted with pneumonia with sepsis. Started IV cefepime. Daptomycin continued for the osteomyelitis in the toe. Today: Laying in bed. Slight cough. Eating about 75%. Getting IV antibiotics. Review of systems: Was done for constitutional, cardiovascular, GI, pulmonary. relevant finding as above Active Medications Allopurinol (Allopurinol 100 Mg Tab) 100 mg PO DAILY@0800 [facility] Last Admin: 08/21/20 09:18 Dose: 100 mg Documented by: Amlodipine Besylate (Amlodipine 10 Mg Tab) 10 mg PO DAILY@0800 [facility] Last Admin: 08/21/20 09:17 Dose: 10 mg Documented by: Apixaban (Apixaban 2.5 Mg Tablet) 2.5 mg PO BID@0800,1700 [facility] Last Admin: 08/21/20 09:17 Dose: 2.5 mg Documented by: Bisacodyl (Bisacodyl 10 Mg Supp) 10 mg RECTAL DAILY PRN PRN Reason: Constipation Doxazosin Mesylate (Doxazosin 4 Mg Tab) 8 mg PO DAILY@1700 [facility] Last Admin: 08/20/20 17:36 Dose: 8 mg Documented by: Hydralazine HCl (Hydralazine Hcl 25 Mg Tab) 25 mg PO BID@0800,1700 [facility] Last Admin: 08/21/20 09:17 Dose: 25 mg Documented by: Sodium Chloride (Saline 0.9%) 1,000 mls @ 75 mls/hr IV .[id number] [facility] Last Admin: 08/21/20 04:27 Dose: Not Given Documented by: Daptomycin 800 mg/ Sodium (Chloride) 50 mls @ 100 mls/hr IVPB Q48H [facility]; Protocol Cefepime HCl 1 gm/ Sodium (Chloride) 50 mls @ 12.5 mls/hr IVPB Q12H [facility] Last Admin: 08/21/20 13:50 Dose: 12.5 mls/hr Documented by: Insulin Aspart (Insulin Aspart (Novolog) 100 Unit/Ml Vial) 0 unit SQ ACHS [facility]; Protocol Last Admin: 08/21/20 13:51 Dose: 4 unit Documented by: Insulin Detemir (Insulin Detemir (Levemir) 100 Unit/Ml Syr) 28 unit SQ DAILY@0800 [facility] Last Admin: 08/21/20 09:18 Dose: 28 unit Documented by: Levothyroxine Sodium (Levothyroxine 100 Mcg Tab) 100 mcg PO DAILY@0600 [facility] Last Admin: 08/21/20 06:32 Dose: 100 mcg Documented by: Naloxone HCl (Naloxone 0.4 Mg/Ml 1 Ml Vial) 0.2 mg IV Q2M PRN PRN Reason: Opioid Reversal Tamsulosin HCl (Tamsulosin 0.4 Mg Cap.Er.24h) 0.4 mg PO PC-SUPPER [facility] Last Admin: 08/20/20 21:05 Dose: 0.4 mg Documented by: Past medical history to include: Left second toe ostium mellitus/MRSA being currently treated, atrial fibrillation, chronic kidney disease stage III, BPH with urinary retention now with a Palacios catheter, diabetes type 2, peripheral neuropathy, hypothyroid, gout Social history: Patient smoked for a few years stopped quite a few years ago. Alcohol rarely. Currently at [facility]. Family history: Reviewed, noncontributory to presentation Physical examination: VITAL SIGNS: 98, 66, 16, 143/70, 87% on 6 L GENERAL: BMI 49.3, laying in bed, tired, awake. EYES: Pupils equal. Conjunctiva normal. HEENT: External appearance of nose and ears normal, oral cavity grossly normal. NECK: JVD not raised; masses not palpable. HEART: First and second heart sounds are normal; no edema. LUNGS:[ Respiratory rate increased; decreased breath sounds, possible crackles ABDOMEN: Soft, nontender, liver spleen not palpable, no masses palpable. Palacios catheter PSYCH: Alert and oriented x3; mood and affect tiredl. MUSCULAR skeletal: Evidence of OA INVESTIGATIONS, reviewed in the clinical context: Today: WBC 15.5 hemoglobin 11.6 platelets 231 potassium 5 bun 78 creatinine 2.67. Accu-Chek 213. Sodium 131 WBC 21.3 hemoglobin 11.7 platelets 201 sodium 127 potassium 5.3 bun 70 creatinine 2.53 glucose 260 proBNP 3880 troponin I 0.034 UA positive for small leukoesterase, RBC greater than 182 Coronavirus [PCR]-not detected EKG tracing personally reviewed by me-normal sinus rhythm, with some possible ST segment changes Chest x-ray film personally reviewed by me-underpenetrated. Possibly infiltrate. Possible effusion Assessment and plan: -Probable pneumonia suspected gram-negative organism.-Slow to respond Patient started IV cefepime -Sepsis from pneumonia On IV antibiotics and fluids -Essential hypertension On hydralazine -Diabetes mellitus type 2, uncontrolled with hyperglycemia Increase Levemir to 36 units in the morning. Follow with sliding scale. -Hypothyroid Continue with Synthroid -BPH with bladder outflow obstruction Palacios catheter was placed August 19. add Flomax. DC trial of Palacios in 48 hours -Second toe acute osteomyelitis with MRSA, secondary to foreign body Patient to continue 6 weeks of IV daptomycin 800 mg a day from August 19 -Paroxysmal atrial flutter fibrillation currently in sinus rhythm Continue with eliquis -Chronic gout Continue with allopurinol -Hyponatremian's-slow to improve Follow labs -Acute hypoxic respiratory failure from pneumonia-slow to respond Currently on 6 L nasal cannula Continue with IV cefepime, IV daptomycin. Increase Levemir to 36 units. Discussed with patient.
[2020-08-21 17:16] LABS: Glucose,Whole Blood 239 mg/dL (75-99)
[2020-08-21] MEDS: TAMSULOSIN 0.4 MG CAP.ER.24H PO SCH (17:55)
[2020-08-21] MEDS: DOXAZOSIN 4 MG TAB PO SCH (17:55)
--- NOTE | 2020-08-21 20:00 | ECHOF ---
Referral Reason:CHF MEASUREMENTS -------- HEIGHT: 172.7 cm WEIGHT: 104.8 kg BP: 134/68 IVSd: 1.2 cm (0.6 - 1.1) LVIDd: 5.8 cm (3.9 - 5.3) LVPWd: 1.4 cm (0.6 - 1.1) EDV(Teich): 168 ml IVSs: 1.7 cm LVIDs: 4.2 cm LVPWs: 2.1 cm %IVS Thck: 36 % ESV(Teich): 78 ml EF(Teich): 54 % %FS: 28 % SV(Teich): 90 ml RVIDd: 4.0 cm (< 3.3) Ao Diam: 2.8 cm (2.0 - 3.7) MV E Mike: 1.06 m/s MV DecT: 201 ms MV Dec [place]: 5.3 m/s MV A Mike: 0.38 m/s MV E/A Ratio: 2.81 MV PHT: 58 ms LVOT Vmax: 1.34 m/s LVOT maxP.13 mmHg LVOT Vmax: 1.31 m/s LVOT Vmean: 0.83 m/s LVOT maxP.89 mmHg LVOT meanP.29 mmHg LVOT Env.Ti: 309 ms LVOT VTI: 25.6 cm AV Vmax: 2.38 m/s AV maxP.68 mmHg AV Vmax: 2.37 m/s AV Vmean: 1.81 m/s AV maxP.60 mmHg AV meanP.44 mmHg AV Env.Ti: 235 ms AV VTI: 42.5 cm TR Vmax: 3.34 m/s TR maxP.52 mmHg RAP: 10.00 mmHg RVSP: 54.52 mmHg FINDINGS -------- Undetermined rhythm. This was a techncally difficult study with suboptimal views, , Lumason utilized for enhancement of im ages. There is mild concentric left ventricular hypertrophy. Overall left ventricular systolic function i s normal with, an EF between 55 - 60 %. The right ventricle is moderate to severely enlarged. The right ventricular septal wall is flatten ed in diastole and systole which is consistent with right ventricular volume and pressure overload. The left atrium is mildly dilated. The right atrial size is normal. 5.0mg OF Lumason UTLIZED: 2 OR MORE WALL SEGMENTS NOT VISUALIZED. The aortic valve was not well visualized. There is mild aortic stenosis present. Peak/mean gradie nt across the Aortic Valve is 22.60mmHg / 14.44mmHg. Mild mitral regurgitation is present. Mild tricuspid regurgitation present. There is moderate pulmonary hypertension. The right ventric ular systolic pressure, as measured by Doppler, is 54.52mmHg. The pulmonic valve was not well visualized. The aortic root size is normal. Echo free space represents a pericardial fat pad. CONCLUSIONS -------- 1. This was a techncally difficult study with suboptimal views, , Lumason utilized for enhancement of images. 2. There is mild concentric left ventricular hypertrophy. 3. Overall left ventricular systolic function is normal with, an EF between 55 - 60 %. 4. The right ventricle is moderate to severely enlarged. 5. The right ventricular septal wall is flattened in diastole and systole which is consistent with r ight ventricular volume and pressure overload. 6. The left atrium is mildly dilated. 7. The right atrial size is normal. 8. 5.0mg OF Lumason UTLIZED: 2 OR MORE WALL SEGMENTS NOT VISUALIZED. 9. The aortic valve was not well visualized. 10. There is mild aortic stenosis present. 11. Peak/mean gradient across the Aortic Valve is 22.60mmHg / 14.44mmHg. 12. Mild mitral regurgitation is present. 13. Mild tricuspid regurgitation present. 14. There is moderate pulmonary hypertension. 15. The right ventricular systolic pressure, as measured by Doppler, is 54.52mmHg. 16. The pulmonic valve was not well visualized. 17. The aortic root size is normal. 18. Echo free space represents a pericardial fat pad. HARVESTING CONTRACTOR: Ankita Ochoa RDCS
[2020-08-21 20:40] LABS: Glucose,Whole Blood 292 mg/dL (75-99)
[2020-08-22] MEDS: CEFEPIME 1 GM in SODIUM CHLORIDE 0.9% 50 ML IVPB SCH ×3 (00:01→23:05)
[2020-08-22 02:05] LABS: Glucose,Whole Blood 175 mg/dL (75-99)
--- NOTE | 2020-08-22 06:08 | CONS ---
CONSULTATION DATE OF SERVICE: 08/21/2020 REASON FOR CONSULTATION: 1. Left second toe osteomyelitis. 2. Pneumonia. HISTORY OF PRESENT ILLNESS: The patient is an 85-year-old male who was recently admitted at [facility] with left second toe wound and concern for underlying osteomyelitis. Culture positive for MRSA. The patient did have renal insufficiency and was advised daptomycin for a total of six weeks, which the patient was receiving at [facility]. The patient was brought to [facility] ER the day before yesterday, on the , for fever and increasing shortness of breath. On arrival of the EMS, patient was noted to be hypoxic with O2 sats of 81%. CPAP was placed and the patient was brought into the ER. The patient did receive a dose of Lasix and Tylenol prior to coming to the hospital. The patient presented to the hospital with fever of 102 degrees Fahrenheit. The patient did have a white count of 15.5. Chest x-ray was obtained with symptoms suggestive of congestive heart failure, probably bilateral pleural effusion. The patient was started on cefepime with concern for possible Gram-negative pneumonia. Daptomycin was continued for his osteomyelitis infection. ID was consulted for further management. The patient has been complaining mostly of shortness of breath that had been getting worse for a day or two before presented to the hospital. The patient also has a cough which is moderate in intensity with occasional sputum production. No hemoptysis. Denies any chest pain. No nausea, vomiting, abdominal pain and denies pain to his left second toe. No drainage from it. REVIEW OF SYSTEMS: Positive points have been mentioned in HPI. Rest of systems are negative. PAST MEDICAL HISTORY: Diabetes mellitus, hypertension, renal insufficiency, left second toe osteomyelitis. PAST SURGICAL HISTORY: No major surgery. SOCIAL HISTORY: Remote history of smoking. Rarely drinks. No drug use. FAMILY HISTORY: No pertinent findings noticed. ALLERGIES: No known drug allergies. MEDICATIONS: The patient is currently on daptomycin 800 mg q.48h hours, cefepime 1 g q.12h, Eliquis, Dulcolax, Norvasc, Zyloprim, Cardura, NovoLog, Levemir, Synthroid, Narcan, IV fluid, Flomax. PHYSICAL EXAMINATION: VITAL SIGNS: Blood pressure is 144/73 with a pulse of 66, temperature 98, He is 88% on 8 L high-flow oxygen. GENERAL DESCRIPTION: Patient is an elderly male lying in bed in no distress. No tachypnea or accessory muscles of respiration use. HEENT: Examination shows pallor, no scleral icterus. Oral mucous membrane is dry. NECK: Trachea central, no thyromegaly. LUNGS: Unlabored breathing, decreased intensity of breath sounds, no wheeze. HEART: S1-S2, regular rate and rhythm. ABDOMEN: Soft, no tenderness. No guarding or rigidity. EXTREMITIES: No edema of the feet. Examination of the left second toe overall swelling and redness has decreased, no drainage. NEUROLOGICAL: Patient is awake, alert, oriented times three. Mood and affect normal. LABS: [id number], white count 15.5, admission white count was 21.3, BUN of 78, creatinine is 2.67. Urine was negative. Heck PCR was negative. DIAGNOSTIC IMPRESSION: Patient admitted to the hospital with increasing shortness of breath, cough and fever with concern for possible pneumonia in this patient who was getting IV daptomycin for left second toe osteomyelitis recently diagnosed at the [facility]. PLAN: 1. We will try to obtain sputum for Gram stain and culture. 2. Check urine for Legionella antigen, CRP and procalcitonin. 3. We will keep the patient on daptomycin for the left second toe osteomyelitis. 4. Continue with cefepime for the underlying pneumonia to which the patient has clinically responding. 5. We will follow on his clinical condition and culture to further adjust medication if needed. Thank you for this consultation. Will follow this patient along with you. MMODL / IJN: [id number] / [id number]
[2020-08-22 06:10] LABS: Glucose,Whole Blood 225 mg/dL (75-99)
[2020-08-22] MEDS ORDERED: FUROSEMIDE 10 MG/ML 4 ML VIAL IV STA (06:17)
[2020-08-22] MEDS: SODIUM CHLORIDE 0.9% 1,000 ML IV SCH (06:20)
[2020-08-22] MEDS ORDERED: MAG HYDROX/AL HYDROX/SIMETH 30 ML CUP PO PRN (06:22)
[2020-08-22] MEDS: DOCUSATE 100 MG CAP PO SCH (06:28)
[2020-08-22] MEDS: LEVOTHYROXINE 100 MCG TAB PO SCH (06:28)
[2020-08-22 06:31] LABS: ABG Base Excess -5.5 mmol/L; ABG HCO3 20 mmol/L (21-25); ABG Oxygen Saturation 93.9 % (94-97); ABG PCO2 37 mmHg (35-45); ABG PH 7.35 (7.35-7.45); ABG PO2 68 mmHg (83-108); ABG TCO2 21 mmol/L (19-24); Allen Test Performed? Yes
[2020-08-22] MEDS: INSULIN ASPART (NovoLOG) 100 UNIT/ML VIAL SQ SCH ×4 (06:37→20:06)
[2020-08-22] MEDS ORDERED: INSULIN DETEMIR (LEVEMIR) 100 UNIT/ML SYR SQ SCH (07:00)
[2020-08-22 08:10] LABS: Basophils # (A) 0.1 k/uL (0-0.2); Basophils % (A) 0 %; Eosinophils # (A) 0.1 k/uL (0-0.7); Eosinophils % (A) 0 %; HCT 36.3 % (39.0-53.0); HGB 11.6 gm/dL (13.0-17.5); Hypochromasia Slight; Lymphocytes # (A) 0.5 k/uL (1.0-4.8); Lymphocytes % (A) 3 %; MCH 30.6 pg (25.0-35.0); MCV 95.5 fL (80.0-100.0); Mean Platelet Volume 7.7; Monocytes # (A) 0.5 k/uL (0-1.0); Monocytes % (A) 3 %; Neutrophils # (A) 15.2 k/uL (1.3-7.7); Neutrophils % (A) 93 %; Platelet Count 244 k/uL (150-450); WBC 16.4 k/uL (3.8-10.6)
[2020-08-22 08:20] LABS: Albumin 2.6 g/dL (3.5-5.0); Calcium 8.4 mg/dL (8.4-10.2); Potassium 5.2 mmol/L (3.5-5.1); Total Bilirubin 0.5 mg/dL (0.2-1.3); Total Protein 5.7 g/dL (6.3-8.2)
[2020-08-22] MEDS ORDERED: MAG HYDROX/AL HYDROX/SIMETH 30 ML CUP PO SCH (09:00)
--- NOTE | 2020-08-22 09:03 | XR ---
EXAMINATION TYPE: XR chest 1V portable DATE OF EXAM: 08/22/2020 COMPARISON: NONE HISTORY: Pneumonia TECHNIQUE: Single frontal view of the chest is obtained. FINDINGS: Low lung volumes. Right PICC line with the tip the cavoatrial junction. Heart size is enlar ged. Patchy diffuse airspace opacity throughout the left lung with slight improved aeration at the le ft upper lobe. Milder patchy airspace opacity at the right mid and lower lobe. Probable small bilater al pleural effusions. No pneumothorax. IMPRESSION: 1. Cardiomegaly and patchy diffuse airspace opacities throughout the left lung and milder patchy airs pace opacity at the right mid and lower lobe. Consider edema versus infection. Probable small bilater al pleural effusions.
[2020-08-22] MEDS: allopurinoL 100 MG TAB PO SCH (09:15)
[2020-08-22] MEDS: amLODIPine 10 MG TAB PO SCH (09:15)
[2020-08-22] MEDS: APIXABAN 2.5 MG TABLET PO SCH ×2 (09:15→17:48)
[2020-08-22] MEDS: hydrALAZINE HCL 25 MG TAB PO SCH ×2 (09:15→17:48)
--- NOTE | 2020-08-22 11:25 | P.PN ---
Subjective Progress Note Date: 08/22/20 Principal diagnosis: Acute exacerbation of congestive heart failure likely acute on chronic systolic heart failure Acute hypoxic respiratory failure Likely sleep disorder breathing and sleep apnea Osteomyelitis of left second toe Hypertension hypertensive cardiovascular disease 08/22/2020, critical care time 35 minutes patient seen eval examined during the rounds patient overall continued to have oxygen desaturation, and eventually placed on BiPAP currently over BiPAP 12/60 and 60% oxygen feeling short of breath not use to BiPAP machine, off note that Lasix has been held for many days give 40 mg of Lasix over 700 mL of clear urine has been obtained, a stat chest x-ray continued to show bilateral patchy infiltrate cardiomegaly small bilateral pleural effusion consistent with CHF and fluid overload on top of pneumonia him a white cell count was 16,000 hemoglobin and hematocrit 11.6/36.3, arterial blood gas on 60% oxygen pH is 7.35 pCO2 37 pO2 of 68 bicarb 31, patient remains on daptomycin and cephAPIME, blood cultures 2 are negative we'll send a sputum culture as well 08/21/2020, patient seen eval examined, remains short of breath on 8 L of oxygen patient is on broad-spectrum antibiotics with cefapime as well as daptomycin, shortness breath slightly better patient is being diuresed, remains on broad- spectrum antibiotics follow clinical course closely, repeat chest x-ray tomorrow Patient is a 85-year-old male presented in emergency department from [facility] why EMS, patient was diagnosed ostomy mellitus of left second toe has a PICC line and has been getting daptomycin, he arrived one day prior to numbing into the hospital, patient spiked a fever with increasing shortness of breath oxygen saturation dropped down to 81%, patient was transported to the emergency department for further evaluation oxygen saturation was just 81%, patient was placed on CPAP in emergency department was switched to BiPAP, 12/6 with 50% oxygen, patient has been on now 5 L oxygen feeling better, his past medical history is morbid obesity hypertension hypertensive cardiovascular disease diabetes mellitus history of MRSA infection, patient also has chronic atrial fibrillation on direct anticoagulant, patient has been noted to have leukocytosis with WBC count of 21,000 hyponatremia BUN/creatinine 70 and 2.53, bicarb is just 16, chest x-ray CHF-like finding with bilateral pleural effusion other significant labs include sodium of 127, BUN/creatinine of 70 and 2.53, Covid 19 is negative, Objective - Vital Signs Vital signs: Vital Signs Temp 98 F 08/22/20 03:36 Pulse 73 08/22/20 03:36 Resp 30 H 08/22/20 03:36 BP 142/65 08/22/20 03:36 Pulse Ox 88 L 08/22/20 03:36 Intake & Output 08/21/20 08/22/20 08/22/20 18:59 06:59 18:59 Intake Total 480 50 780 Output Total 350 300 500 Balance 130 -250 280 Weight 105 kg Intake: Oral 480 50 780 Output: Urine 350 300 500 Other: Voiding Method Indwelling Catheter Indwelling Catheter # Bowel Movements 1 - Exam - Constitutional General appearance: mild distress, morbidly obese - EENT Eyes: PERRLA Ears: bilateral: normal - Neck Carotids: bilateral: upstroke normal - Respiratory Respiratory: bilateral: diminished, rales - Cardiovascular Rhythm: regular Heart sounds: normal: S1, S2 - Neurologic Neurologic: CNII-XII intact - Musculoskeletal Musculoskeletal: gait normal, generalized weakness, strength equal bilaterally - Psychiatric Psychiatric: A&O x's 3, appropriate affect, intact judgment & insight - Labs CBC & Chem 7: 08/22/20 07:33 08/22/20 07:33 Labs: Abnormal Lab Results - Last 24 Hours (Table) 08/21/20 08/21/20 08/21/20 Range/Units 11:59 17:15 20:35 WBC (3.8-10.6) k/uL RBC (4.30-5.90) m/uL Hgb (13.0-17.5) gm/dL Hct (39.0-53.0) % Neutrophils # (1.3-7.7) k/uL Lymphocytes # (1.0-4.8) k/uL ABG pO2 (83-108) mmHg ABG HCO3 (21-25) mmol/L ABG O2 Saturation (94-97) % Sodium (137-145) mmol/L Potassium (3.5-5.1) mmol/L Carbon Dioxide (22-30) mmol/L BUN (9-20) mg/dL Creatinine (0.66-1.25) mg/dL Glucose (74-99) mg/dL POC Glucose (mg/dL) 213 H 239 H 292 H (75-99) mg/dL C-Reactive Protein (<1.0) mg/dL Total Protein (6.3-8.2) g/dL Albumin (3.5-5.0) g/dL 08/22/20 08/22/20 08/22/20 Range/Units 02:01 06:07 06:19 WBC (3.8-10.6) k/uL RBC (4.30-5.90) m/uL Hgb (13.0-17.5) gm/dL Hct (39.0-53.0) % Neutrophils # (1.3-7.7) k/uL Lymphocytes # (1.0-4.8) k/uL ABG pO2 68 L (83-108) mmHg ABG HCO3 20 L (21-25) mmol/L ABG O2 Saturation 93.9 L (94-97) % Sodium (137-145) mmol/L Potassium (3.5-5.1) mmol/L Carbon Dioxide (22-30) mmol/L BUN (9-20) mg/dL Creatinine (0.66-1.25) mg/dL Glucose (74-99) mg/dL POC Glucose (mg/dL) 175 H 225 H (75-99) mg/dL C-Reactive Protein (<1.0) mg/dL Total Protein (6.3-8.2) g/dL Albumin (3.5-5.0) g/dL 08/22/20 08/22/20 Range/Units 07:33 07:33 WBC 16.4 H (3.8-10.6) k/uL RBC 3.80 L (4.30-5.90) m/uL Hgb 11.6 L (13.0-17.5) gm/dL Hct 36.3 L (39.0-53.0) % Neutrophils # 15.2 H (1.3-7.7) k/uL Lymphocytes # 0.5 L (1.0-4.8) k/uL ABG pO2 (83-108) mmHg ABG HCO3 (21-25) mmol/L ABG O2 Saturation (94-97) % Sodium 132 L (137-145) mmol/L Potassium 5.2 H (3.5-5.1) mmol/L Carbon Dioxide 18 L (22-30) mmol/L BUN 83 H (9-20) mg/dL Creatinine 2.73 H (0.66-1.25) mg/dL Glucose 191 H (74-99) mg/dL POC Glucose (mg/dL) (75-99) mg/dL C-Reactive Protein 24.0 H (<1.0) mg/dL Total Protein 5.7 L (6.3-8.2) g/dL Albumin 2.6 L (3.5-5.0) g/dL Microbiology - Last 24 Hours (Table) 08/19/20 21:35 Blood Culture - Preliminary Blood No Growth after 48 hours 08/19/20 21:35 Blood Culture - Preliminary Blood No Growth after 48 hours Assessment and Plan Assessment: Bilateral pneumonia likely mixed bacterial Acute exacerbation of congestive heart failure likely acute on chronic systolic heart failure Acute hypoxic respiratory failure Likely sleep disorder breathing and sleep apnea Osteomyelitis Hypertension hypertensive cardiovascular disease Plan: Check sputum studies as well as pro-calcitonin Gentle diuresis BiPAP support each night and when necessary during the day Supplemental oxygen Continue IV daptomycin with Cefapime Titrated oxygen down as tolerated Continue home medications Monitor clinical course closely further plan of care as per clinical response of the patient Time with Patient: Greater than 30
[2020-08-22 11:49] LABS: Glucose,Whole Blood 235 mg/dL (75-99)
[2020-08-22] MEDS ORDERED: FUROSEMIDE 10 MG/ML 4 ML VIAL IV ONE (12:00)
--- NOTE | 2020-08-22 12:52 | P.PN ---
Subjective This is a pleasant 85-year-old male past medical history significant for paroxysmal atrial fibrillation, hypertension, dyslipidemia, diabetes mellitus, chronic kidney disease and morbid obesity. He is seen and examined sitting up in bed in no acute distress. He states overall his breathing seems to have improved from admission however not back to baseline entirely. Blood pressure 143/70 heart rate 66 afebrile maintaining oxygen saturation on nasal cannula. Laboratory data reviewed, WBC 15.5, hemoglobin 11.6, platelets 231, sodium 131, potassium 5, creatinine 2.67. 08/22/2020 Patient was seen and examined resting comfortably laying flat in bed in no acute distress. He states through the night he has been feeling more short of breath. Per nursing staff he is requiring more oxygen. During that time he also had what he describes as heartburn in the midsternal region. He states he got up to use the restroom had a bowel movement and his heartburn resolved. Blood pressure 142/65 heart rate 73 afebrile maintaining oxygen saturation on high flow follow cannula. Laboratory data reviewed, WBC 16.4, hemoglobin 11.6, platelets 244, pH 7.35, pCO2 37, PaO2 68, bicarb 20, sodium 132, potassium 5.2, creatinine 2.73, BNP 4230. Repeat chest x-ray reveals patchy diffuse airspace opacity throughout the left lung Opacity noted at the right mid to lower lobe, consider edema versus infection. He was given one dose of IV Lasix this morning and had 650 mL's of urine output. Dr. Bran has ordered another dose to be given at noontime today. ID is following. Echocardiogram obtained reveals preserved LV systolic function with ejection fraction 55-60%, mild aortic stenosis with a mean gradient of 14 mmHg, mild MR, mild TR and moderate pulmonary hypertension with an RVSP of 54 mmHg. GENERAL: Well-appearing, well-nourished and in no acute distress. Morbid obesity. NECK: Supple without JVD or thyromegaly. LUNGS: Scattered rales. No wheezes or rhonchi. Respiration equal and unlabored. Diminished bilaterally. HEART: Regular rate and rhythm with systolic ejection murmur at the base, no rubs or gallops. S1 and S2 heard. EXTREMITIES: Normal range of motion, trace lower extremity edema. No clubbing or cyanosis. Peripheral pulses intact. ASSESSMENT Shortness of breath likely related to underlying pneumonia Leukocytosis Acute on chronic diastolic heart failure Left toe osteomyelitis COPD Aortic stenosis, mild Pulmonary hypertension Paroxysmal atrial fibrillation Chronic kidney disease Hypertension Dyslipidemia Diabetes mellitus PLAN Continue IV diuretics. Follow renal function and electrolytes in the morning. Document accurate intake and output along with daily weights. Further recommendations will follow based upon clinical course. Nurse Practitioner note has been reviewed, I agree with a documented findings and plan of care. Patient was seen and examined. Objective - Vital Signs Vital signs: Vital Signs Temp 98 F 08/22/20 03:36 Pulse 73 08/22/20 03:36 Resp 30 H 08/22/20 03:36 BP 142/65 08/22/20 03:36 Pulse Ox 88 L 08/22/20 03:36 Intake & Output 08/21/20 08/22/20 08/22/20 18:59 06:59 18:59 Intake Total 480 50 780 Output Total 350 300 500 Balance 130 -250 280 Weight 105 kg Intake: Oral 480 50 780 Output: Urine 350 300 500 Other: Voiding Method Indwelling Catheter Indwelling Catheter # Bowel Movements 1 - Labs CBC & Chem 7: 08/22/20 07:33 08/22/20 07:33 Labs: Abnormal Lab Results - Last 24 Hours (Table) 08/21/20 08/21/20 08/21/20 Range/Units 11:59 17:15 20:35 WBC (3.8-10.6) k/uL RBC (4.30-5.90) m/uL Hgb (13.0-17.5) gm/dL Hct (39.0-53.0) % Neutrophils # (1.3-7.7) k/uL Lymphocytes # (1.0-4.8) k/uL ABG pO2 (83-108) mmHg ABG HCO3 (21-25) mmol/L ABG O2 Saturation (94-97) % Sodium (137-145) mmol/L Potassium (3.5-5.1) mmol/L Carbon Dioxide (22-30) mmol/L BUN (9-20) mg/dL Creatinine (0.66-1.25) mg/dL Glucose (74-99) mg/dL POC Glucose (mg/dL) 213 H 239 H 292 H (75-99) mg/dL C-Reactive Protein (<1.0) mg/dL Total Protein (6.3-8.2) g/dL Albumin (3.5-5.0) g/dL 08/22/20 08/22/20 08/22/20 Range/Units 02:01 06:07 06:19 WBC (3.8-10.6) k/uL RBC (4.30-5.90) m/uL Hgb (13.0-17.5) gm/dL Hct (39.0-53.0) % Neutrophils # (1.3-7.7) k/uL Lymphocytes # (1.0-4.8) k/uL ABG pO2 68 L (83-108) mmHg ABG HCO3 20 L (21-25) mmol/L ABG O2 Saturation 93.9 L (94-97) % Sodium (137-145) mmol/L Potassium (3.5-5.1) mmol/L Carbon Dioxide (22-30) mmol/L BUN (9-20) mg/dL Creatinine (0.66-1.25) mg/dL Glucose (74-99) mg/dL POC Glucose (mg/dL) 175 H 225 H (75-99) mg/dL C-Reactive Protein (<1.0) mg/dL Total Protein (6.3-8.2) g/dL Albumin (3.5-5.0) g/dL 08/22/20 08/22/20 Range/Units 07:33 07:33 WBC 16.4 H (3.8-10.6) k/uL RBC 3.80 L (4.30-5.90) m/uL Hgb 11.6 L (13.0-17.5) gm/dL Hct 36.3 L (39.0-53.0) % Neutrophils # 15.2 H (1.3-7.7) k/uL Lymphocytes # 0.5 L (1.0-4.8) k/uL ABG pO2 (83-108) mmHg ABG HCO3 (21-25) mmol/L ABG O2 Saturation (94-97) % Sodium 132 L (137-145) mmol/L Potassium 5.2 H (3.5-5.1) mmol/L Carbon Dioxide 18 L (22-30) mmol/L BUN 83 H (9-20) mg/dL Creatinine 2.73 H (0.66-1.25) mg/dL Glucose 191 H (74-99) mg/dL POC Glucose (mg/dL) (75-99) mg/dL C-Reactive Protein 24.0 H (<1.0) mg/dL Total Protein 5.7 L (6.3-8.2) g/dL Albumin 2.6 L (3.5-5.0) g/dL Microbiology - Last 24 Hours (Table) 08/19/20 21:35 Blood Culture - Preliminary Blood No Growth after 48 hours 08/19/20 21:35 Blood Culture - Preliminary Blood No Growth after 48 hours
[2020-08-22] MEDS: CALCIUM CARBONATE LIQUID 500 MG/5 ML CUP PO SCH ×3 (13:10→20:06)
--- NOTE | 2020-08-22 15:27 | P.PN ---
Progress Note - Text Progress Note Date: 08/22/20 Chief Complaint: Short of breath History of presenting complaint: This is a pleasant 85-year-old patient of Dr. Fisher. Chronic stable medical conditions include diabetes, hypertension. Patient was at [facility] from August 13 through August 18. With left second toe osteomyelitis/MRSA- patient to get IV daptomycin 800 mg a day for 6 weeks from August 19.. New-onset of atrial fibrillation, has underlying chronic kidney disease stage III. Yesterday patient has significant urinary retention and [facility] and had a Palacios catheter placed. Has BPH. Also got a bedsore. Peripheral neuropathy hypothyroid gout. Patient now presents with increasing shortness of breath. Cough with little sputum. Fever. Rather tired. Admitted with pneumonia with sepsis. Started IV cefepime. Daptomycin continued for the osteomyelitis in the toe. Today: Tired. Being bothered by reflux/heartburn. Decrease appetite. Using a BiPAP. On antibiotics. Review of systems: Was done for constitutional, cardiovascular, GI, pulmonary. relevant finding as above Active Medications Al Hydroxide/Mg Hydroxide (Mag Hydrox/Al Hydrox/Simeth 30 Ml Cup) 30 ml PO QID PRN PRN Reason: Heartburn Last Admin: 08/22/20 06:29 Dose: 30 ml Documented by: Albuterol/Ipratropium (Ipratropium-Albuterol 3 Ml Neb) 3 ml INHALATION RT-QID PRN PRN Reason: Shortness Of Breath Or Wheezing Allopurinol (Allopurinol 100 Mg Tab) 100 mg PO DAILY@0800 [facility] Last Admin: 08/22/20 09:15 Dose: 100 mg Documented by: Amlodipine Besylate (Amlodipine 10 Mg Tab) 10 mg PO DAILY@0800 [facility] Last Admin: 08/22/20 09:15 Dose: 10 mg Documented by: Apixaban (Apixaban 2.5 Mg Tablet) 2.5 mg PO BID@0800,1700 [facility] Last Admin: 08/22/20 09:15 Dose: 2.5 mg Documented by: Bisacodyl (Bisacodyl 10 Mg Supp) 10 mg RECTAL DAILY PRN PRN Reason: Constipation Calcium Carbonate/Glycine (Calcium Carbonate Liquid 500 Mg/5 Ml Cup) 500 mg PO ACHS [facility] Last Admin: 08/22/20 13:10 Dose: 500 mg Documented by: Docusate Sodium (Docusate 100 Mg Cap) 100 mg PO DAILY [facility] Last Admin: 08/22/20 06:28 Dose: 100 mg Documented by: Doxazosin Mesylate (Doxazosin 4 Mg Tab) 8 mg PO DAILY@1700 [facility] Last Admin: 08/21/20 17:55 Dose: 8 mg Documented by: Furosemide (Furosemide 10 Mg/Ml 4 Ml Vial) 40 mg IV DAILY [facility] Hydralazine HCl (Hydralazine Hcl 25 Mg Tab) 25 mg PO BID@0800,1700 [facility] Last Admin: 08/22/20 09:15 Dose: 25 mg Documented by: Daptomycin 800 mg/ Sodium (Chloride) 50 mls @ 100 mls/hr IVPB Q48H [facility]; Protocol Last Admin: 08/22/20 09:15 Dose: 100 mls/hr Documented by: Cefepime HCl 1 gm/ Sodium (Chloride) 50 mls @ 12.5 mls/hr IVPB Q12H [facility] Last Admin: 08/22/20 13:06 Dose: 12.5 mls/hr Documented by: Insulin Aspart (Insulin Aspart (Novolog) 100 Unit/Ml Vial) 0 unit SQ [facility]; Protocol Last Admin: 08/22/20 13:06 Dose: 5 unit Documented by: Insulin Detemir (Insulin Detemir (Levemir) 100 Unit/Ml Syr) 34 unit SQ DAILY@0700 [facility] Last Admin: 08/22/20 06:28 Dose: 34 unit Documented by: Levothyroxine Sodium (Levothyroxine 100 Mcg Tab) 100 mcg PO DAILY@0600 [facility] Last Admin: 08/22/20 06:28 Dose: 100 mcg Documented by: Naloxone HCl (Naloxone 0.4 Mg/Ml 1 Ml Vial) 0.2 mg IV Q2M PRN PRN Reason: Opioid Reversal Tamsulosin HCl (Tamsulosin 0.4 Mg Cap.Er.24h) 0.4 mg PO PC-SUPPER [facility] Last Admin: 08/21/20 17:55 Dose: 0.4 mg Documented by: Past medical history to include: Left second toe ostium mellitus/MRSA being currently treated, atrial fibrillation, chronic kidney disease stage III, BPH with urinary retention now with a Palacios catheter, diabetes type 2, peripheral neuropathy, hypothyroid, gout Social history: Patient smoked for a few years stopped quite a few years ago. Alcohol rarely. Currently at [facility]. Family history: Reviewed, noncontributory to presentation Physical examination: VITAL SIGNS: 98.2, 68, 22, 1:30 to 64, 90% on 60 L BiPAP GENERAL: Laying in bed, tired EYES: Pupils equal. Conjunctiva normal. HEENT: External appearance of nose and ears normal, oral cavity grossly normal. NECK: JVD not raised; masses not palpable. HEART: First and second heart sounds are normal; no edema. LUNGS:[ Respiratory rate increased; decreased breath sounds, possible crackles ABDOMEN: Soft, nontender, liver spleen not palpable, no masses palpable. Palacios catheter PSYCH: Alert and oriented x3; mood and affect tired. MUSCULAR skeletal: Evidence of OA INVESTIGATIONS, reviewed in the clinical context: August 22: WBC 16.4 hemoglobin 11.6 platelets 244 potassium 5.2 creatinine 2.73 August 21: WBC 15.5 hemoglobin 11.6 platelets 231 potassium 5 bun 78 creatinine 2.67. Accu-Chek 213. Sodium 131 WBC 21.3 hemoglobin 11.7 platelets 201 sodium 127 potassium 5.3 bun 70 creatinine 2.53 glucose 260 proBNP 3880 troponin I 0.034 UA positive for small leukoesterase, RBC greater than 182 Coronavirus [PCR]-not detected EKG tracing personally reviewed by me-normal sinus rhythm, with some possible ST segment changes Chest x-ray film personally reviewed by me-underpenetrated. Possibly infiltrate. Possible effusion Assessment and plan: -Probable pneumonia suspected gram-negative organism.-Not improving IV cefepime -Sepsis from pneumonia On IV antibiotics and fluids -Essential hypertension On hydralazine -Diabetes mellitus type 2, uncontrolled with hyperglycemia Increase Levemir to 42 units in the morning. Follow with sliding scale. -Hypothyroid Continue with Synthroid -BPH with bladder outflow obstruction Palacios catheter was placed August 19. add Flomax. DC trial of Palacios in 48 hours -Second toe acute osteomyelitis with MRSA, secondary to foreign body Patient to continue 6 weeks of IV daptomycin 800 mg a day from August 19 -Paroxysmal atrial flutter fibrillation currently in sinus rhythm Continue with eliquis -Chronic gout Continue with allopurinol -Hyponatremian's-slow to improve Follow labs -Acute hypoxic respiratory failure from pneumonia-worsening On BiPAP -Acute versus chronic kidney injury, need further workup Order renal ultrasound. Nephrology consultation. Continue with IV cefepime, IV daptomycin. Increase Levemir to 42 units. On BiPAP. Follow with pulmonary cardiology discussed with patient.
[2020-08-22 16:45] LABS: Glucose,Whole Blood 216 mg/dL (75-99)
[2020-08-22] MEDS: TAMSULOSIN 0.4 MG CAP.ER.24H PO SCH (17:48)
[2020-08-22] MEDS: DOXAZOSIN 4 MG TAB PO SCH (17:48)
--- NOTE | 2020-08-22 19:03 | PN ---
PROGRESS NOTE DATE OF SERVICE: 08/22/2020 REASON FOR FOLLOWUP: 1. Left toe osteomyelitis. 2. Pneumonia. INTERVAL HISTORY: The patient is afebrile. The patient is currently on a BiPAP. The patient denies having any chest pain. He did have occasional cough but not bringing any sputum. He is complaining of some heartburn. No vomiting, though. No abdominal pain or any worsening pain to the left big toe. PHYSICAL EXAMINATION: Blood pressure 146/62 with a pulse of 55. Temperature is 98.2. He is 95% on BiPAP. General description is an elderly male lying in bed in no distress. RESPIRATORY SYSTEM: Unlabored breathing with decreased intensity of breath sounds. No wheeze. HEART: S1, S2. Regular rate and rhythm. ABDOMEN: Soft. No tenderness. Left foot is currently dressed up. No obvious drainage on the dressing. LAB: Hemoglobin is 11.6, white count 16.4, BUN of 83, creatinine 2.73. Procalcitonin is 1.66. Blood culture so far negative. DIAGNOSTIC IMPRESSION AND PLAN: 1. Patient admitted to hospital with shortness of breath which is multifactorial in this patient with a possible component of pneumonia, covered with cefepime, with overall resolution of his fever. Try to obtain a sputum sample to narrow down his antibiotics. 2. Patient with left second toe osteomyelitis and MRSA. Continue the daptomycin. MMODL / IJN: [id number] / MTDD
[2020-08-22 20:00] LABS: Glucose,Whole Blood 308 mg/dL (75-99)
[2020-08-23 01:51] LABS: Glucose,Whole Blood 221 mg/dL (75-99)
[2020-08-23 06:13] LABS: Glucose,Whole Blood 295 mg/dL (75-99)
[2020-08-23] MEDS: LEVOTHYROXINE 100 MCG TAB PO SCH (06:39)
[2020-08-23] MEDS: INSULIN DETEMIR (LEVEMIR) 100 UNIT/ML SYR SQ SCH (06:39)
[2020-08-23] MEDS: INSULIN ASPART (NovoLOG) 100 UNIT/ML VIAL SQ SCH ×4 (06:39→20:31)
[2020-08-23] MEDS: CALCIUM CARBONATE LIQUID 500 MG/5 ML CUP PO SCH ×5 (06:43→23:01)
[2020-08-23] MEDS: IPRATROPIUM-ALBUTEROL 3 ML NEB INHALATION PRN ×3 (07:19→15:03)
[2020-08-23 08:00] LABS: Basophils % (A) 0 %; Eosinophils # (A) 0.1 k/uL (0-0.7); Eosinophils % (A) 0 %; HGB 11.3 gm/dL (13.0-17.5); Lymphocytes # (A) 0.3 k/uL (1.0-4.8); Lymphocytes % (A) 2 %; MCH 30.3 pg (25.0-35.0); MCHC 32.3 g/dL (31.0-37.0); MCV 93.7 fL (80.0-100.0); Monocytes # (A) 0.8 k/uL (0-1.0); Monocytes % (A) 5 %; Neutrophils % (A) 93 %; Platelet Count 262 k/uL (150-450); RBC 3.73 m/uL (4.30-5.90); WBC 17.2 k/uL (3.8-10.6)
[2020-08-23 08:12] LABS: Albumin 2.5 g/dL (3.5-5.0); Calcium 8.2 mg/dL (8.4-10.2); Potassium 5.5 mmol/L (3.5-5.1); Total Bilirubin 0.4 mg/dL (0.2-1.3); Total Protein 5.4 g/dL (6.3-8.2)
--- NOTE | 2020-08-23 10:08 | US ---
EXAMINATION TYPE: US kidneys/renal and bladder DATE OF EXAM: 08/23/2020 COMPARISON: US 08/20/2020 CLINICAL HISTORY: Kidney injury. Very difficult and limited exam due to patient body habitus and overlying bowel gas EXAM MEASUREMENTS: Right Kidney: 9.9 x 5.3 x 5.5 cm Left Kidney: 9.2 x 4.7 x 4.5 cm Right Kidney: No hydronephrosis or masses seen Left Kidney: No hydronephrosis. Cystic area lower pole measuring 1.2 x 1.1 x 1.1 cm Bladder: Not distended, patient has machado There is no evidence for hydronephrosis at this point in time as visualized. Cortical noted on the le ft. IMPRESSION: Exam is limited. No evident hydronephrosis. Correlate for medical renal disease
[2020-08-23] MEDS: FUROSEMIDE 10 MG/ML 4 ML VIAL IV SCH (10:25)
[2020-08-23] MEDS: APIXABAN 2.5 MG TABLET PO SCH ×2 (10:26→18:00)
[2020-08-23] MEDS: DOCUSATE 100 MG CAP PO SCH (10:26)
[2020-08-23] MEDS: amLODIPine 10 MG TAB PO SCH (10:26)
[2020-08-23] MEDS: allopurinoL 100 MG TAB PO SCH (10:26)
[2020-08-23] MEDS: hydrALAZINE HCL 25 MG TAB PO SCH ×3 (10:26→20:32)
[2020-08-23 11:40] LABS: Glucose,Whole Blood 276 mg/dL (75-99)
--- NOTE | 2020-08-23 12:07 | P.PN ---
Subjective Progress Note Date: 08/23/20 This is a pleasant 85-year-old male past medical history significant for paroxysmal atrial fibrillation, hypertension, dyslipidemia, diabetes mellitus, chronic kidney disease and morbid obesity. The patient was interviewed and examined lying in bed. He states his breathing is doing better, however he was mildly tachypnea And labored. He denies any chest pain or chest pressure. No palpitations. He does get dizzy and lightheaded when he ambulates up to the chair. He states he has been up this morning. GENERAL: Ill-appearing, obese, and in no acute distress. Mildly tachypneic NECK: Supple without JVD or thyromegaly. LUNGS: Breath sounds diminished to auscultation bilaterally. Respiration equal and mildly labored. No wheezes, rales or rhonchi. HEART: Regular rate and rhythm. Systolic murmur. No rubs or gallops. S1 and S2 heard. EXTREMITIES: Normal range of motion, modeerate edema, worse on the left. Hyperkeratosis. No clubbing or cyanosis. VITALS: 154/66, respiratory rate 18, pulse rate 72, temperature 90.7F oral, SpO2 92% on 15 L high flow nasal cannula TELEMETRY: Sinus rhythm, no arrythmias LABS: WBC 17.2, hemoglobin 11.3, hematocrit 35.0, platelet 262, sodium 131, potassium 5.5, BUN 91, creatinine 2.61 IMPRESSION: Shortness of breath, CHF versus pneumonia Acute on chronic diastolic heart failure, BNP 4230 Aortic stenosis, mild Pulmonary hypertension Paroxysmal atrial fibrillation, maintaining sinus rhythm Chronic kidney disease, nephro consult pending Hyperkalemia Hyponatremia Hypertension, uncontrolled Dyslipidemia, on statin Diabetes mellitus Lymphedema PLAN: Increase hydralazine to 3 times a day Recommend increasing Lasix or consider Lasix drip, however this will be deferred to nephrology Strict I's and O's Further recommendations to be based on clinical course Objective - Vital Signs Vital signs: Vital Signs Temp 97.0 F L 08/23/20 08:00 Pulse 72 08/23/20 11:08 Resp 18 08/23/20 08:00 BP 154/66 08/23/20 08:00 Pulse Ox 92 L 08/23/20 08:00 Intake & Output 08/22/20 08/23/20 08/23/20 18:59 06:59 18:59 Intake Total 1140 240 Output Total 1700 600 Balance -560 -600 240 Intake: Oral 1140 240 Output: Urine 1700 600 Other: Voiding Method Indwelling Catheter Indwelling Catheter # Bowel Movements 1 1 - Labs CBC & Chem 7: 08/23/20 07:10 08/23/20 07:10 Labs: Abnormal Lab Results - Last 24 Hours (Table) 08/22/20 08/22/20 08/22/20 Range/Units 07:33 16:43 19:59 WBC (3.8-10.6) k/uL RBC (4.30-5.90) m/uL Hgb (13.0-17.5) gm/dL Hct (39.0-53.0) % Neutrophils # (1.3-7.7) k/uL Lymphocytes # (1.0-4.8) k/uL Sodium (137-145) mmol/L Potassium (3.5-5.1) mmol/L Carbon Dioxide (22-30) mmol/L BUN (9-20) mg/dL Creatinine (0.66-1.25) mg/dL Glucose (74-99) mg/dL POC Glucose (mg/dL) 216 H 308 H (75-99) mg/dL Calcium (8.4-10.2) mg/dL Total Protein (6.3-8.2) g/dL Albumin (3.5-5.0) g/dL Procalcitonin 1.66 H (0.02-0.09) ng/mL 08/23/20 08/23/20 08/23/20 Range/Units 01:50 06:12 07:10 WBC 17.2 H (3.8-10.6) k/uL RBC 3.73 L (4.30-5.90) m/uL Hgb 11.3 L (13.0-17.5) gm/dL Hct 35.0 L (39.0-53.0) % Neutrophils # 16.0 H (1.3-7.7) k/uL Lymphocytes # 0.3 L (1.0-4.8) k/uL Sodium (137-145) mmol/L Potassium (3.5-5.1) mmol/L Carbon Dioxide (22-30) mmol/L BUN (9-20) mg/dL Creatinine (0.66-1.25) mg/dL Glucose (74-99) mg/dL POC Glucose (mg/dL) 221 H 295 H (75-99) mg/dL Calcium (8.4-10.2) mg/dL Total Protein (6.3-8.2) g/dL Albumin (3.5-5.0) g/dL Procalcitonin (0.02-0.09) ng/mL 08/23/20 08/23/20 Range/Units 07:10 11:38 WBC (3.8-10.6) k/uL RBC (4.30-5.90) m/uL Hgb (13.0-17.5) gm/dL Hct (39.0-53.0) % Neutrophils # (1.3-7.7) k/uL Lymphocytes # (1.0-4.8) k/uL Sodium 131 L (137-145) mmol/L Potassium 5.5 H (3.5-5.1) mmol/L Carbon Dioxide 17 L (22-30) mmol/L BUN 91 H (9-20) mg/dL Creatinine 2.61 H (0.66-1.25) mg/dL Glucose 306 H (74-99) mg/dL POC Glucose (mg/dL) 276 H (75-99) mg/dL Calcium 8.2 L (8.4-10.2) mg/dL Total Protein 5.4 L (6.3-8.2) g/dL Albumin 2.5 L (3.5-5.0) g/dL Procalcitonin (0.02-0.09) ng/mL Microbiology - Last 24 Hours (Table) 08/19/20 21:35 Blood Culture - Preliminary Blood No Growth after 72 hours 08/19/20 21:35 Blood Culture - Preliminary Blood No Growth after 72 hours
[2020-08-23] MEDS: CEFEPIME 1 GM in SODIUM CHLORIDE 0.9% 50 ML IVPB SCH ×2 (12:24→23:01)
--- NOTE | 2020-08-23 13:47 | CONS ---
CONSULTATION REASON FOR CONSULT: Renal failure. HISTORY OF PRESENT ILLNESS: The patient is an 85-year-old male who was admitted to the hospital on 08/20/2020 with complaints of shortness of breath. He does have history of type 2 diabetes and hypertension with a history of peripheral extremity wound. Patient has a left 2nd toe osteomyelitis. He is being followed by ID. There is also concern for pneumonia. The patient is maintained on IV daptomycin. Serum creatinine was 2.6 mg per dL today, potassium of 5.5. Previous creatinine was 2.5 on initial admission 08/19/2020. No previous labs available for comparison. Blood pressure has not been significantly low and patient was not on any nonsteroidal anti- inflammatory agents prior to admission. I do not see any IV contrast administered this admission. PAST MEDICAL HISTORY: Significant for hypertension, diabetes, peripheral vascular disease, hypothyroidism, wound in the lower extremities. MEDICATIONS: Medications prior to admission included Zyloprim, Eliquis, insulin, Synthroid, magnesium, Hytrin, Norvasc, Dulcolax, hydralazine. SOCIAL HISTORY: Patient is a former smoker. No history of drug abuse or alcohol abuse. EXAMINATION: Today patient is awake, comfortable. He is not in any acute distress. Blood pressure was 154/66, heart rate 76 per minute. He is afebrile. Examination of the heart S1, S2. Examination of the lungs, bilateral breath sounds are heard. Abdomen is soft, nontender. Examination of lower extremities shows edema 1+. Left foot is currently wrapped. RN PROCEDURE exam grossly intact. LAB: Show sodium 131, potassium 5.5, chloride 104, CO2 17, BUN 91, creatinine 2.6 mg/dL, hemoglobin 11.3. UA shows more than 182 RBCs, protein 1+, blood large. ASSESSMENT: 1. Acute kidney injury mostly acute tubular necrosis, secondary to underlying infection currently nonoliguric. The patient has an indwelling Palacios catheter, 24 hour output documented at 2.3 L. Not sure if he had urine retention on initial Palacios catheter placement. UA shows significant hematuria. An ultrasound of the kidneys has already been done early this morning, which shows no evidence of hydronephrosis. No nephrotoxic agents noted on board currently. Patient is being diuresed. 2. Left toe osteomyelitis, being followed by vascular surgery, maintained on daptomycin. 3. New onset atrial fibrillation. 4. Chronic kidney disease baseline creatinine possibly around 2, although no previous labs available at this time. Etiology is likely nephrosclerosis. 5. History of benign prostatic hypertrophy. It looks like patient did have urinary retention, although the amount obtained on initial Palacios catheter placement is not documented. 6. Acute hypoxic respiratory failure secondary to pneumonia, maintained on antibiotics. 7. Hyperkalemia associated with acute kidney injury. 8. Non gap metabolic acidosis secondary to renal failure. PLAN: Add oral sodium bicarb. Continue with the Lasix. This will also help with the hyperkalemia. Continue with Palacios catheter. Avoid hypotension and repeat labs in a.m. Thank you for this consultation. Will continue to follow the patient with you during his hospitalization. MMODL / IJN: [id number] /
[2020-08-23 17:16] LABS: Glucose,Whole Blood 265 mg/dL (75-99)
[2020-08-23] MEDS: TAMSULOSIN 0.4 MG CAP.ER.24H PO SCH (18:00)
[2020-08-23] MEDS: DOXAZOSIN 4 MG TAB PO SCH (18:00)
--- NOTE | 2020-08-23 18:18 | PN ---
PROGRESS NOTE DATE OF SERVICE: 08/23/2020 REASON FOR FOLLOWUP: Pneumonia and left second toe osteomyelitis. INTERVAL HISTORY: Patient is currently afebrile. Patient is breathing comfortably. The patient denies having any chest pain or shortness of breath. Cough has decreased in intensity. No nausea, vomiting. No abdominal pain or pain to the left second toe. EXAMINATION: VITAL SIGNS: Blood pressure 154/66, pulse of 72, temperature 97.8. He is 92% on 15 liters of high-flow oxygen. GENERAL DESCRIPTION: An elderly male lying in bed in no distress. RESPIRATORY SYSTEM: Unlabored breathing, decreased breath sounds at the bases, no wheeze. HEART: S1, S2. Regular rate and rhythm. ABDOMEN: Soft, no tenderness. LABS: Hemoglobin 11.8, white count 17.2, BUN of 91, creatinine is 2.61. Blood culture negative. Sputum has not been collected. DIAGNOSTIC IMPRESSION AND PLAN: 1. Patient admitted to the hospital with increasing shortness of breath, cough, and fever with concerning for pneumonia, possible gram-negative covered with cefepime to continue and try to obtain a sputum to narrow down antibiotics. 2. Patient with left second toe osteomyelitis. Continue with daptomycin. MMODL / IJN: [id number] /
--- NOTE | 2020-08-23 19:33 | P.PN ---
Subjective Progress Note Date: 08/23/20 Principal diagnosis: Pneumonia/sepsis/ acute hypoxic respiratory failure Acute osteomyelitis second toe with MRSA/foreign-body Acute on chronic kidney disease Hyponatremia 85-year-old patient with Chronic stable medical conditions include diabetes, hypertension. Patient was at [facility] from August 13 through August 18. With left second toe osteomyelitis/MRSA-patient to get IV daptomycin 800 mg a day for 6 weeks from August 19.. New-onset of atrial fibrillation, has underlying chronic kidney disease stage III. Yesterday patient has significant urinary retention and [facility] and had a Palacios catheter placed. Has BPH. Also got a bedsore. Peripheral neuropathy hypothyroid gout, presents with increasing shortness of breath. Cough with little sputum. Fever. Objective - Vital Signs Vital signs: Vital Signs Temp 97.0 F L 08/23/20 08:00 Pulse 72 08/23/20 11:08 Resp 18 08/23/20 08:00 BP 154/66 08/23/20 08:00 Pulse Ox 92 L 08/23/20 08:00 Intake & Output 08/22/20 08/23/20 08/23/20 18:59 06:59 18:59 Intake Total 1140 240 Output Total 1700 600 Balance -560 -600 240 Intake: Oral 1140 240 Output: Urine 1700 600 Other: Voiding Method Indwelling Catheter Indwelling Catheter # Bowel Movements 1 1 - Exam GENERAL: Laying in bed, tired EYES: Pupils equal. Conjunctiva normal. HEENT: External appearance of nose and ears normal, oral cavity grossly normal. NECK: JVD not raised; masses not palpable. HEART: First and second heart sounds are normal; no edema. LUNGS:[ Respiratory rate increased; decreased breath sounds, possible crackles ABDOMEN: Soft, nontender, liver spleen not palpable, no masses palpable. Palacios catheter PSYCH: Alert and oriented x3; mood and affect tired. - Labs CBC & Chem 7: 08/23/20 07:10 08/23/20 07:10 Labs: Abnormal Lab Results - Last 24 Hours (Table) 08/22/20 08/22/20 08/22/20 Range/Units 07:33 16:43 19:59 WBC (3.8-10.6) k/uL RBC (4.30-5.90) m/uL Hgb (13.0-17.5) gm/dL Hct (39.0-53.0) % Neutrophils # (1.3-7.7) k/uL Lymphocytes # (1.0-4.8) k/uL Sodium (137-145) mmol/L Potassium (3.5-5.1) mmol/L Carbon Dioxide (22-30) mmol/L BUN (9-20) mg/dL Creatinine (0.66-1.25) mg/dL Glucose (74-99) mg/dL POC Glucose (mg/dL) 216 H 308 H (75-99) mg/dL Calcium (8.4-10.2) mg/dL Total Protein (6.3-8.2) g/dL Albumin (3.5-5.0) g/dL Procalcitonin 1.66 H (0.02-0.09) ng/mL 08/23/20 08/23/20 08/23/20 Range/Units 01:50 06:12 07:10 WBC 17.2 H (3.8-10.6) k/uL RBC 3.73 L (4.30-5.90) m/uL Hgb 11.3 L (13.0-17.5) gm/dL Hct 35.0 L (39.0-53.0) % Neutrophils # 16.0 H (1.3-7.7) k/uL Lymphocytes # 0.3 L (1.0-4.8) k/uL Sodium (137-145) mmol/L Potassium (3.5-5.1) mmol/L Carbon Dioxide (22-30) mmol/L BUN (9-20) mg/dL Creatinine (0.66-1.25) mg/dL Glucose (74-99) mg/dL POC Glucose (mg/dL) 221 H 295 H (75-99) mg/dL Calcium (8.4-10.2) mg/dL Total Protein (6.3-8.2) g/dL Albumin (3.5-5.0) g/dL Procalcitonin (0.02-0.09) ng/mL 08/23/20 08/23/20 Range/Units 07:10 11:38 WBC (3.8-10.6) k/uL RBC (4.30-5.90) m/uL Hgb (13.0-17.5) gm/dL Hct (39.0-53.0) % Neutrophils # (1.3-7.7) k/uL Lymphocytes # (1.0-4.8) k/uL Sodium 131 L (137-145) mmol/L Potassium 5.5 H (3.5-5.1) mmol/L Carbon Dioxide 17 L (22-30) mmol/L BUN 91 H (9-20) mg/dL Creatinine 2.61 H (0.66-1.25) mg/dL Glucose 306 H (74-99) mg/dL POC Glucose (mg/dL) 276 H (75-99) mg/dL Calcium 8.2 L (8.4-10.2) mg/dL Total Protein 5.4 L (6.3-8.2) g/dL Albumin 2.5 L (3.5-5.0) g/dL Procalcitonin (0.02-0.09) ng/mL Microbiology - Last 24 Hours (Table) 08/19/20 21:35 Blood Culture - Preliminary Blood No Growth after 72 hours 08/19/20 21:35 Blood Culture - Preliminary Blood No Growth after 72 hours Assessment and Plan Assessment: 1. Pneumonia suspected gram-negative organism/sepsis - Patient started on IV cefepime; we will continue; monitor CBC, CRP and pro- calcitonin 2. Acute hypoxic respiratory failure; patient currently on BiPAP; we will wean as tolerated 3. Acute on chronic kidney disease; nephrology on board 4. Acute osteomyelitis second toe/ MRSA; patient remains on IV daptomycin; ID on board; recommending to continue daptomycin for a total of 6 weeks 5. Essential hypertension; stable on current dose of hydralazine with parameters 6. Diabetes mellitus type 2, uncontrolled with hyperglycemia; Levemir increased to 42 units in the morning; continue to monitor Accu-Cheks every before meals and at bedtime with insulin sliding scale 7. Hypothyroid; Continue with Synthroid 8. BPH with bladder outflow obstruction; Palacios catheter in place; remains on Flomax 9. Paroxysmal atrial flutter fibrillation currently in sinus rhythm; systemic anticoagulation with eliquis 10. Chronic gout; stable on allopurinol DVT prophylaxis; SCDs/systemic anticoagulation CODE STATUS; full code
[2020-08-23 19:47] LABS: Glucose,Whole Blood 311 mg/dL (75-99)
[2020-08-23] MEDS: SODIUM BICARBONATE TAB 650 MG TAB PO SCH (20:32)
[2020-08-24 02:03] LABS: Glucose,Whole Blood 196 mg/dL (75-99)
[2020-08-24 06:04] LABS: Glucose,Whole Blood 233 mg/dL (75-99)
[2020-08-24] MEDS: INSULIN ASPART (NovoLOG) 100 UNIT/ML VIAL SQ SCH ×4 (06:28→20:20)
[2020-08-24] MEDS: CALCIUM CARBONATE LIQUID 500 MG/5 ML CUP PO SCH ×4 (06:28→20:21)
[2020-08-24] MEDS: INSULIN DETEMIR (LEVEMIR) 100 UNIT/ML SYR SQ SCH (06:28)
[2020-08-24] MEDS: LEVOTHYROXINE 100 MCG TAB PO SCH (06:28)
[2020-08-24 09:41] LABS: Calcium 8.6 mg/dL (8.4-10.2); Potassium 5.5 mmol/L (3.5-5.1)
[2020-08-24] MEDS: amLODIPine 10 MG TAB PO SCH (09:46)
[2020-08-24] MEDS: FUROSEMIDE 10 MG/ML 4 ML VIAL IV SCH (09:46)
[2020-08-24] MEDS: allopurinoL 100 MG TAB PO SCH (09:46)
[2020-08-24] MEDS: APIXABAN 2.5 MG TABLET PO SCH ×2 (09:46→18:10)
[2020-08-24] MEDS: hydrALAZINE HCL 25 MG TAB PO SCH ×3 (09:47→20:20)
[2020-08-24] MEDS: SODIUM BICARBONATE TAB 650 MG TAB PO SCH ×2 (09:47→20:20)
[2020-08-24] MEDS: DOCUSATE 100 MG CAP PO SCH (09:47)
--- NOTE | 2020-08-24 10:14 | P.PN ---
Subjective Progress Note Date: 08/24/20 Principal diagnosis: Acute exacerbation of congestive heart failure likely acute on chronic systolic heart failure Acute hypoxic respiratory failure Likely sleep disorder breathing and sleep apnea Osteomyelitis of left second toe Hypertension hypertensive cardiovascular disease 08/24/2020, patient seen eval examined during the rounds labs reviewed medications reviewed, patient remains on high flow oxygen 15 L during the day and BiPAP at nighttime, is still short of breath but feeling that severity has improved, denies any chest pain, ongoing dry cough is present,unable to obtain a sputum studies,last chest x-ray revealed cardiomegaly interstitial edema diffuse airspace disease on the left lung, patient has been getting 40 mg of Lasix, BUN is up to 101/2.83, he renal services has been following, patient remains on Eliquis 2.5 milligram 2 times a day, blood cultures 2 are negative, 08/22/2020, critical care time 35 minutes patient seen eval examined during the rounds patient overall continued to have oxygen desaturation, and eventually placed on BiPAP currently over BiPAP 12/60 and 60% oxygen feeling short of breath not use to BiPAP machine, off note that Lasix has been held for many days give 40 mg of Lasix over 700 mL of clear urine has been obtained, a stat chest x-ray continued to show bilateral patchy infiltrate cardiomegaly small bilateral pleural effusion consistent with CHF and fluid overload on top of pneumonia him a white cell count was 16,000 hemoglobin and hematocrit 11.6/36.3, arterial blood gas on 60% oxygen pH is 7.35 pCO2 37 pO2 of 68 bicarb 31, patient remains on daptomycin and cephAPIME, blood cultures 2 are negative we'll send a sputum culture as well 08/21/2020, patient seen eval examined, remains short of breath on 8 L of oxygen patient is on broad-spectrum antibiotics with cefapime as well as daptomycin, shortness breath slightly better patient is being diuresed, remains on broad- spectrum antibiotics follow clinical course closely, repeat chest x-ray tomorrow Patient is a 85-year-old male presented in emergency department from [facility] why EMS, patient was diagnosed ostomy mellitus of left second toe has a PICC line and has been getting daptomycin, he arrived one day prior to numbing into the hospital, patient spiked a fever with increasing shortness of breath oxygen saturation dropped down to 81%, patient was transported to the emergency department for further evaluation oxygen saturation was just 81%, patient was placed on CPAP in emergency department was switched to BiPAP, 03/02 with 50% oxygen, patient has been on now 5 L oxygen feeling better, his past medical history is morbid obesity hypertension hypertensive cardiovascular disease diabetes mellitus history of MRSA infection, patient also has chronic atrial fibrillation on direct anticoagulant, patient has been noted to have leukocytosis with WBC count of 21,000 hyponatremia BUN/creatinine 70 and 2.53, bicarb is just 16, chest x-ray CHF-like finding with bilateral pleural effusion other significant labs include sodium of 127, BUN/creatinine of 70 and 2.53, Covid 19 is negative, Objective - Vital Signs Vital signs: Vital Signs Temp 98 F 08/24/20 00:00 Pulse 64 08/24/20 04:00 Resp 25 H 08/24/20 04:00 BP 128/70 08/24/20 04:00 Pulse Ox 95 08/24/20 04:00 Intake & Output 08/23/20 08/24/20 08/24/20 18:59 06:59 18:59 Intake Total 720 Output Total 2150 1275 Balance -1430 -1275 Weight 103.6 kg Intake: Oral 720 Output: Urine 2150 1275 Uretheral (Palacios) 850 850 Other: Voiding Method Indwelling Catheter Indwelling Catheter - Exam - Constitutional General appearance: mild distress, morbidly obese - EENT Eyes: PERRLA Ears: bilateral: normal - Neck Carotids: bilateral: upstroke normal - Respiratory Respiratory: bilateral: diminished, rales - Cardiovascular Rhythm: regular Heart sounds: normal: S1, S2 - Neurologic Neurologic: CNII-XII intact - Musculoskeletal Musculoskeletal: gait normal, generalized weakness, strength equal bilaterally - Psychiatric Psychiatric: A&O x's 3, appropriate affect, intact judgment & insight - Labs CBC & Chem 7: 08/23/20 07:10 08/24/20 09:05 Labs: Abnormal Lab Results - Last 24 Hours (Table) 08/23/20 08/23/20 08/23/20 Range/Units 11:38 17:14 19:32 Sodium (137-145) mmol/L Potassium (3.5-5.1) mmol/L BUN (9-20) mg/dL Creatinine (0.66-1.25) mg/dL Glucose (74-99) mg/dL POC Glucose (mg/dL) 276 H 265 H 311 H (75-99) mg/dL 08/24/20 08/24/20 08/24/20 Range/Units 02:01 06:03 09:05 Sodium 133 L (137-145) mmol/L Potassium 5.5 H (3.5-5.1) mmol/L BUN 101 H* (9-20) mg/dL Creatinine 2.83 H (0.66-1.25) mg/dL Glucose 194 H (74-99) mg/dL POC Glucose (mg/dL) 196 H 233 H (75-99) mg/dL Microbiology - Last 24 Hours (Table) 08/19/20 21:35 Blood Culture - Preliminary Blood No Growth after 96 hours 08/19/20 21:35 Blood Culture - Preliminary Blood No Growth after 96 hours Assessment and Plan Assessment: Bilateral pneumonia likely mixed bacterial Acute exacerbation of congestive heart failure likely acute on chronic systolic heart failure Acute hypoxic respiratory failure Likely sleep disorder breathing and sleep apnea left second toe Osteomyelitis Hypertension hypertensive cardiovascular disease Plan: monitor renal functions closely Gentle diuresis, we'll decrease Lasix to 20 mg a day BiPAP support each night and when necessary during the day Supplemental oxygen Continue IV daptomycin with Cefapime Titrated oxygen down as tolerated Continue home medications Monitor clinical course closely further plan of care as per clinical response of the patient Time with Patient: Greater than 30
[2020-08-24] MEDS: IPRATROPIUM-ALBUTEROL 3 ML NEB INHALATION PRN ×2 (11:22→15:55)
[2020-08-24 12:00] LABS: Glucose,Whole Blood 213 mg/dL (75-99)
--- NOTE | 2020-08-24 13:00 | PN ---
PROGRESS NOTE Patient is seen for followup for acute kidney injury. Serum creatinine has worsened slightly from 2.6-2.3 today. Patient denies any significant complaints. His potassium has remained at about 5.5 mEq/L. Blood sugars are high with sugar as high as 311 yesterday and this morning was 233. Patient is currently maintained on a very low dose Lasix which is at 40 mg IV daily. PHYSICAL EXAMINATION: On examination today, blood pressure was 128/70, heart rate 64 per minute. Patient is afebrile. Examination of the heart S1, S2. Examination of lungs, decreased breath sounds at the bases. Abdomen is soft, obese. Exam of lower extremities shows edema 1+ bilaterally. LAB: Show sodium 133, potassium 5.5, chloride 105, BUN 101, serum creatinine of 2.83. ASSESSMENT: 1. Acute kidney injury, acute tubular necrosis, nonoliguric, with serum creatinine slightly higher. Today there was an element of urine retention. No evidence of obstruction noted on the ultrasound. Blood pressure is not significantly low. No nephrotoxic agents on board at this time. 2. 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 3. Chronic kidney disease stage 3B. Baseline creatinine around 2. Etiology is likely nephrosclerosis. 4. History of benign prostatic hypertrophy with urine retention currently with Palacios catheter. 5. Acute hypoxic respiratory failure secondary to pneumonia, maintained on antibiotics. 6. New onset atrial fibrillation. 7. Non gap metabolic acidosis secondary to renal failure. 8. Hyperkalemia associated with acute kidney injury and elevated blood sugars, not on any LINDSAY inhibitors or nonsteroidal anti-inflammatory agents. PLAN: Control blood sugars. Continue with IV Lasix. Rule out GI bleed. Check CBC in a.m. So far, hemoglobin was 11.3 as of 08/23 and no active bleeding noted at this time. Continue with the sodium bicarb for now. Repeat labs in a.m. MMODL / IJN: [id number] /
[2020-08-24] MEDS: CEFEPIME 1 GM in SODIUM CHLORIDE 0.9% 50 ML IVPB SCH ×2 (13:01→23:31)
--- NOTE | 2020-08-24 13:31 | P.PN ---
Subjective Progress Note Date: 08/24/20 This is a pleasant 85-year-old male past medical history significant for paroxysmal atrial fibrillation, hypertension, dyslipidemia, diabetes mellitus, chronic kidney disease and morbid obesity. The patient was interviewed and examined lying in bed. He states his breathing is doing better, however he continues to be labored. He denies any chest pain or chest pressure. No palpitations. He does get dizzy and lightheaded when he ambulates up to the chair. He states he has not been up to the chair since yesterday. GENERAL: Ill-appearing, obese, with labored breathing NECK: Supple without JVD or thyromegaly. LUNGS: Breath sounds diminished to auscultation bilaterally with rales. Respiration equal and mildly labored. No wheezes or rhonchi. HEART: Regular rate and rhythm. Systolic murmur. No rubs or gallops. S1 and S2 heard. EXTREMITIES: Normal range of motion, modeerate edema, worse on the left. Hyperkeratosis. No clubbing or cyanosis. VITALS: 128/70, respiratory rate 25, pulse rate 64, temperature 98F oral, SpO2 95% on 15 L high flow nasal cannula TELEMETRY: Sinus rhythm, no arrythmias LABS: sodium 133, potassium 5.5, BUN 101, creatinine 2.83 IMPRESSION: Shortness of breath, CHF versus pneumonia Acute on chronic diastolic heart failure, BNP 4230 Aortic stenosis, mild Pulmonary hypertension Paroxysmal atrial fibrillation, maintaining sinus rhythm Chronic kidney disease, nephro consult pending Hyperkalemia Hyponatremia Hypertension, uncontrolled Dyslipidemia, on statin Diabetes mellitus Lymphedema PLAN: Pulmonary hygiene encouraged Ambulate as tolerated. Recommend up to chair at least twice daily Strict I's and O's Diuretics per nephrology Further recommendations to be based on clinical course The patient has been seen and evaluated. Plan of care has been reviewed and agreed upon by Dr Gonzales. Objective - Vital Signs Vital signs: Vital Signs Temp 98 F 08/24/20 00:00 Pulse 64 08/24/20 11:32 Resp 25 H 08/24/20 04:00 BP 128/70 08/24/20 04:00 Pulse Ox 95 08/24/20 04:00 Intake & Output 08/23/20 08/24/20 08/24/20 18:59 06:59 18:59 Intake Total 720 Output Total 2150 1275 Balance -1430 -1275 Weight 103.6 kg Intake: Oral 720 Output: Urine 3590 1275 Uretheral (Palacios) 850 850 Other: Voiding Method Indwelling Catheter Indwelling Catheter - Labs CBC & Chem 7: 08/23/20 07:10 08/24/20 09:05 Labs: Abnormal Lab Results - Last 24 Hours (Table) 08/23/20 08/23/20 08/24/20 Range/Units 17:14 19:32 02:01 Sodium (137-145) mmol/L Potassium (3.5-5.1) mmol/L BUN (9-20) mg/dL Creatinine (0.66-1.25) mg/dL Glucose (74-99) mg/dL POC Glucose (mg/dL) 265 H 311 H 196 H (75-99) mg/dL 08/24/20 08/24/20 08/24/20 Range/Units 06:03 09:05 11:48 Sodium 133 L (137-145) mmol/L Potassium 5.5 H (3.5-5.1) mmol/L BUN 101 H* (9-20) mg/dL Creatinine 2.83 H (0.66-1.25) mg/dL Glucose 194 H (74-99) mg/dL POC Glucose (mg/dL) 233 H 213 H (75-99) mg/dL Microbiology - Last 24 Hours (Table) 08/19/20 21:35 Blood Culture - Preliminary Blood No Growth after 96 hours 08/19/20 21:35 Blood Culture - Preliminary Blood No Growth after 96 hours
[2020-08-24 17:27] LABS: Glucose,Whole Blood 234 mg/dL (75-99)
[2020-08-24] MEDS: DOXAZOSIN 4 MG TAB PO SCH (18:10)
[2020-08-24] MEDS: TAMSULOSIN 0.4 MG CAP.ER.24H PO SCH (18:10)
--- NOTE | 2020-08-24 18:20 | PN ---
PROGRESS NOTE DATE OF SERVICE: 08/24/2020 REASON FOR FOLLOWUP: 1. Left big toe osteomyelitis. 2. Pneumonia. INTERVAL HISTORY: Patient is currently afebrile. The patient is breathing more comfortably. Patient denies having any chest pain. He did have some cough with decreased intensity. No abdominal pain or pain to the left second toe. PHYSICAL EXAMINATION: Blood pressure is 118/78 with a pulse of 72, temperature 98. He is 93% on 15 L high- flow oxygen. General description is an elderly male lying in in no distress. Respiratory system: Unlabored breathing, decreased breath sounds in the bases. No wheeze. Heart S1, S2. Regular rate and rhythm. ABDOMEN: Soft. No tenderness. LABS: BUN is 101, creatinine is 2.93. Blood culture has been negative. DIAGNOSTIC IMPRESSION AND PLAN: 1. Patient admitted to hospital with shortness of breath, cough, concerning for possible Gram-negative pneumonia. Patient clinically responding to cefepime to continue, try to obtain a sputum to narrow down his antibiotics. 2. Patient with left second toe osteomyelitis secondary to MRSA. Covered with daptomycin. Local care with Aqua Silver dressing. MMODL / IJN: [id number] /
[2020-08-24 20:03] LABS: Glucose,Whole Blood 249 mg/dL (75-99)
--- NOTE | 2020-08-24 20:05 | P.PN ---
Subjective Progress Note Date: 08/24/20 Principal diagnosis: Pneumonia/sepsis/ acute hypoxic respiratory failure Acute osteomyelitis second toe with MRSA/foreign-body Acute on chronic kidney disease Hyponatremia 85-year-old patient with Chronic stable medical conditions include diabetes, hypertension. Patient was at [facility] from August 13 through August 18. With left second toe osteomyelitis/MRSA-patient to get IV daptomycin 800 mg a day for 6 weeks from August 19.. New-onset of atrial fibrillation, has underlying chronic kidney disease stage III. Yesterday patient has significant urinary retention and [facility] and had a Palacios catheter placed. Has BPH. Also got a bedsore. Peripheral neuropathy hypothyroid gout, presents with increasing shortness of breath. Cough with little sputum. Fever. 08/24/2020 Patient is seen and evaluated in room at bedside; admitted to the hospital with shortness of breath and diagnosed with possible gram-negative pneumonia Vital signs are stable with a temperature of 98, pulse 72, respiration 18 and blood pressure of 118/78; remains on HFNC oxygen at 15 L with O2 saturation of 93% Lab review shows an elevated B UN/creatinine of 101/2.93; blood cultures have been negative so far; sputum culture hasn't been obtained yet; ID on board and recommending to continue with cefepime hoping to narrow down antibiotic therapy once sputum cultures available Patient remains on IV daptomycin for left second toe osteomyelitis secondary to MRSA; continue with local wound care with Aquasol silver dressing Objective - Vital Signs Vital signs: Vital Signs Temp 98 F 08/24/20 00:00 Pulse 64 08/24/20 11:32 Resp 25 H 08/24/20 04:00 BP 128/70 08/24/20 04:00 Pulse Ox 95 08/24/20 04:00 Intake & Output 08/23/20 08/24/20 08/24/20 18:59 06:59 18:59 Intake Total 720 Output Total 2150 1275 Balance -1430 -1275 Weight 103.6 kg Intake: Oral 720 Output: Urine 2150 1275 Uretheral (Palacios) 850 850 Other: Voiding Method Indwelling Catheter Indwelling Catheter - Exam GENERAL: Laying in bed, tired EYES: Pupils equal. Conjunctiva normal. HEENT: External appearance of nose and ears normal, oral cavity grossly normal. NECK: JVD not raised; masses not palpable. HEART: First and second heart sounds are normal; no edema. LUNGS:[ Respiratory rate increased; decreased breath sounds, possible crackles ABDOMEN: Soft, nontender, liver spleen not palpable, no masses palpable. Palacios catheter PSYCH: Alert and oriented x3; mood and affect tired. - Labs CBC & Chem 7: 08/23/20 07:10 08/24/20 09:05 Labs: Abnormal Lab Results - Last 24 Hours (Table) 08/23/20 08/23/20 08/24/20 Range/Units 17:14 19:32 02:01 Sodium (137-145) mmol/L Potassium (3.5-5.1) mmol/L BUN (9-20) mg/dL Creatinine (0.66-1.25) mg/dL Glucose (74-99) mg/dL POC Glucose (mg/dL) 265 H 311 H 196 H (75-99) mg/dL 08/24/20 08/24/20 08/24/20 Range/Units 06:03 09:05 11:48 Sodium 133 L (137-145) mmol/L Potassium 5.5 H (3.5-5.1) mmol/L BUN 101 H* (9-20) mg/dL Creatinine 2.83 H (0.66-1.25) mg/dL Glucose 194 H (74-99) mg/dL POC Glucose (mg/dL) 233 H 213 H (75-99) mg/dL Microbiology - Last 24 Hours (Table) 08/19/20 21:35 Blood Culture - Preliminary Blood No Growth after 96 hours 08/19/20 21:35 Blood Culture - Preliminary Blood No Growth after 96 hours Assessment and Plan Assessment: 1. Pneumonia suspected gram-negative organism/sepsis - Patient started on IV cefepime; we will continue; monitor CBC, CRP and pro- calcitonin 2. Acute hypoxic respiratory failure; patient currently on BiPAP; we will wean as tolerated 3. Acute on chronic kidney disease; nephrology on board 4. Acute osteomyelitis second toe/ MRSA; patient remains on IV daptomycin; ID on board; recommending to continue daptomycin for a total of 6 weeks 5. Essential hypertension; stable on current dose of hydralazine with parameters 6. Diabetes mellitus type 2, uncontrolled with hyperglycemia; Levemir increased to 42 units in the morning; continue to monitor Accu-Cheks every before meals and at bedtime with insulin sliding scale 7. Hypothyroid; Continue with Synthroid 8. BPH with bladder outflow obstruction; Palacios catheter in place; remains on Flomax 9. Paroxysmal atrial flutter fibrillation currently in sinus rhythm; systemic anticoagulation with eliquis 10. Chronic gout; stable on allopurinol DVT prophylaxis; SCDs/systemic anticoagulation CODE STATUS; full code
[2020-08-25 02:33] LABS: Glucose,Whole Blood 215 mg/dL (75-99)
[2020-08-25 06:24] LABS: Glucose,Whole Blood 226 mg/dL (75-99)
[2020-08-25] MEDS: CALCIUM CARBONATE LIQUID 500 MG/5 ML CUP PO SCH ×4 (06:48→20:42)
[2020-08-25] MEDS: INSULIN DETEMIR (LEVEMIR) 100 UNIT/ML SYR SQ SCH (06:48)
[2020-08-25] MEDS: LEVOTHYROXINE 100 MCG TAB PO SCH (06:48)
[2020-08-25] MEDS: INSULIN ASPART (NovoLOG) 100 UNIT/ML VIAL SQ SCH ×4 (06:48→20:43)
[2020-08-25] MEDS: IPRATROPIUM-ALBUTEROL 3 ML NEB INHALATION PRN ×4 (08:36→20:40)
[2020-08-25 09:29] LABS: Calcium 8.5 mg/dL (8.4-10.2)
[2020-08-25] MEDS: allopurinoL 100 MG TAB PO SCH (09:32)
[2020-08-25] MEDS: SODIUM BICARBONATE TAB 650 MG TAB PO SCH ×2 (09:32→20:42)
[2020-08-25] MEDS: FUROSEMIDE 10 MG/ML 2 ML VIAL IV SCH (09:32)
[2020-08-25] MEDS: DOCUSATE 100 MG CAP PO SCH (09:32)
[2020-08-25] MEDS: amLODIPine 10 MG TAB PO SCH (09:33)
[2020-08-25] MEDS: APIXABAN 2.5 MG TABLET PO SCH ×2 (09:33→17:44)
[2020-08-25] MEDS: hydrALAZINE HCL 25 MG TAB PO SCH ×3 (09:33→20:42)
--- NOTE | 2020-08-25 09:56 | P.PN ---
Subjective Progress Note Date: 08/25/20 Principal diagnosis: Acute exacerbation of congestive heart failure likely acute on chronic systolic heart failure Acute hypoxic respiratory failure Likely sleep disorder breathing and sleep apnea Osteomyelitis of left second toe Hypertension hypertensive cardiovascular disease 08/25/2020, patient seen eval reexamined during the rounds labs reviewed medications reviewed care plan discussed, respiratory status remains the same, patient remains on BiPAP 12/6 and 60% oxygen at nighttime, 15 L high flow oxygen during the day, ongoing shortness of breath is present, remains on broad- spectrum antibiotics and furosemide, sputum culture unable to obtain blood culture no growth so far, patient continued to have anasarca, BUN/creatinine continue to go up his 116 over 3.13 potassium is up to 6, CO2 is 19, ID and renal service has been following along with cardiology, it appears that patient will require hemodialysis for fluid removal were discussed with renal services 08/24/2020, patient seen eval examined during the rounds labs reviewed medications reviewed, patient remains on high flow oxygen 15 L during the day and BiPAP at nighttime, is still short of breath but feeling that severity has improved, denies any chest pain, ongoing dry cough is present,unable to obtain a sputum studies,last chest x-ray revealed cardiomegaly interstitial edema diffuse airspace disease on the left lung, patient has been getting 40 mg of Lasix, BUN is up to 101/2.83, he renal services has been following, patient remains on Eliquis 2.5 milligram 2 times a day, blood cultures 2 are negative, 08/22/2020, critical care time 35 minutes patient seen eval examined during the rounds patient overall continued to have oxygen desaturation, and eventually placed on BiPAP currently over BiPAP 12/60 and 60% oxygen feeling short of breath not use to BiPAP machine, off note that Lasix has been held for many days give 40 mg of Lasix over 700 mL of clear urine has been obtained, a stat chest x-ray continued to show bilateral patchy infiltrate cardiomegaly small bilateral pleural effusion consistent with CHF and fluid overload on top of pneumonia him a white cell count was 16,000 hemoglobin and hematocrit 11.6/36.3, arterial blood gas on 60% oxygen pH is 7.35 pCO2 37 pO2 of 68 bicarb 31, patient remains on daptomycin and cephAPIME, blood cultures 2 are negative we'll send a sputum culture as well 08/21/2020, patient seen eval examined, remains short of breath on 8 L of oxygen patient is on broad-spectrum antibiotics with cefapime as well as daptomycin, shortness breath slightly better patient is being diuresed, remains on broad- spectrum antibiotics follow clinical course closely, repeat chest x-ray tomorrow Patient is a 85-year-old male presented in emergency department from [facility] why EMS, patient was diagnosed ostomy mellitus of left second toe has a PICC line and has been getting daptomycin, he arrived one day prior to numbing into the hospital, patient spiked a fever with increasing shortness of breath oxygen saturation dropped down to 81%, patient was transported to the emergency department for further evaluation oxygen saturation was just 81%, patient was placed on CPAP in emergency department was switched to BiPAP, 03/02 with 50% oxygen, patient has been on now 5 L oxygen feeling better, his past medical history is morbid obesity hypertension hypertensive cardiovascular disease diabetes mellitus history of MRSA infection, patient also has chronic atrial fibrillation on direct anticoagulant, patient has been noted to have leukocytosis with WBC count of 21,000 hyponatremia BUN/creatinine 70 and 2.53, bicarb is just 16, chest x-ray CHF-like finding with bilateral pleural effusion other significant labs include sodium of 127, BUN/creatinine of 70 and 2.53, Covid 19 is negative, Objective - Vital Signs Vital signs: Vital Signs Temp 97.7 F 08/25/20 03:59 Pulse 72 08/25/20 08:47 Resp 20 08/25/20 03:59 BP 126/59 08/25/20 03:59 Pulse Ox 94 L 08/25/20 03:59 Intake & Output 08/24/20 08/25/20 08/25/20 18:59 06:59 18:59 Intake Total 240 840 Output Total 2450 325 Balance -2449 - 840 Weight 101.8 kg Intake: Oral 240 840 Output: Urine 2450 325 Uretheral (Palacios) 1700 Other: Voiding Method Indwelling Catheter Indwelling Catheter # Voids 0 - Exam - Constitutional General appearance: mild distress, morbidly obese - EENT Eyes: PERRLA Ears: bilateral: normal - Neck Carotids: bilateral: upstroke normal - Respiratory Respiratory: bilateral: diminished, rales - Cardiovascular Rhythm: regular Heart sounds: normal: S1, S2 - Neurologic Neurologic: CNII-XII intact - Musculoskeletal Musculoskeletal: gait normal, generalized weakness, strength equal bilaterally - Psychiatric Psychiatric: A&O x's 3, appropriate affect, intact judgment & insight - Labs CBC & Chem 7: 08/23/20 07:10 08/25/20 09:02 Labs: Abnormal Lab Results - Last 24 Hours (Table) 08/24/20 08/24/20 08/24/20 Range/Units 11:48 17:24 20:02 Sodium (137-145) mmol/L Potassium (3.5-5.1) mmol/L Carbon Dioxide (22-30) mmol/L BUN (9-20) mg/dL Creatinine (0.66-1.25) mg/dL Glucose (74-99) mg/dL POC Glucose (mg/dL) 213 H 234 H 249 H (75-99) mg/dL 08/25/20 08/25/20 08/25/20 Range/Units 02:18 06:18 09:02 Sodium 131 L (137-145) mmol/L Potassium 6.0 H (3.5-5.1) mmol/L Carbon Dioxide 19 L (22-30) mmol/L BUN 116 H* (9-20) mg/dL Creatinine 3.13 H (0.66-1.25) mg/dL Glucose 255 H (74-99) mg/dL POC Glucose (mg/dL) 215 H 226 H (75-99) mg/dL Microbiology - Last 24 Hours (Table) 08/19/20 21:35 Blood Culture - Preliminary Blood No Growth after 120 hours 08/19/20 21:35 Blood Culture - Preliminary Blood No Growth after 120 hours Assessment and Plan Assessment: Bilateral pneumonia likely mixed bacterial Acute exacerbation of congestive heart failure likely acute on chronic systolic heart failure acute kidney injury with worsening renal functions Acute hypoxic respiratory failure Likely sleep disorder breathing and sleep apnea left second toe Osteomyelitis Hypertension hypertensive cardiovascular disease Plan: monitor renal functions closely Gentle diuresis, we'll decrease Lasix to 20 mg a day BiPAP support each night and when necessary during the day Supplemental oxygen Continue IV daptomycin with Cefapime nephrology is following consider hemodialysis and fluid removal Titrated oxygen down as tolerated Continue home medications Monitor clinical course closely further plan of care as per clinical response of the patient Time with Patient: Greater than 30
--- NOTE | 2020-08-25 11:48 | P.PN ---
Subjective Progress Note Date: 08/25/20 This is a pleasant 85-year-old male past medical history significant for paroxysmal atrial fibrillation, hypertension, dyslipidemia, diabetes mellitus, chronic kidney disease and morbid obesity. The patient was interviewed and examined sitting in a recliner chair. He states his breathing is the same. He denies any chest pain or chest pressure. No palpitations. He does get dizzy and lightheaded when he ambulates up to the chair. His edema appears to be improving. GENERAL: Ill-appearing, obese NECK: Supple without JVD or thyromegaly. LUNGS: Breath sounds diminished to auscultation bilaterally with expiratory wheezes. Respiration equal and mildly labored. No rhonchi. HEART: Regular rate and rhythm. Systolic murmur. No rubs or gallops. S1 and S2 heard. EXTREMITIES: Normal range of motion, moderate edema, worse on the left. Hyperkeratosis. No clubbing or cyanosis. VITALS: 126/59, respiratory rate 20, pulse rate 68, temperature 97.7F oral, SpO2 95% on 15 L high flow nasal cannula TELEMETRY: Sinus rhythm, no arrythmias LABS: sodium 131, potassium 6.0, BUN 101, creatinine 3.13 IMPRESSION: Shortness of breath, CHF versus pneumonia Acute on chronic diastolic heart failure, BNP 4230 Aortic stenosis, mild Pulmonary hypertension Paroxysmal atrial fibrillation, maintaining sinus rhythm Chronic kidney disease, worsened, followed by nephrology Hyperkalemia Hyponatremia Hypertension, uncontrolled Dyslipidemia, on statin Diabetes mellitus Lymphedema, improving PLAN: Continue current medication regimen Pulmonary hygiene encouraged Ambulate as tolerated. Recommend up to chair at least twice daily Strict I's and O's Diuretics per nephrology Further recommendations to be based on clinical course The patient has been seen and evaluated. Plan of care has been reviewed and agreed upon by Dr Gonzales. Objective - Vital Signs Vital signs: Vital Signs Temp 98.1 F 08/25/20 08:00 Pulse 72 08/25/20 08:47 Resp 20 08/25/20 08:00 BP 170/58 08/25/20 08:00 Pulse Ox 93 L 08/25/20 08:00 Intake & Output 08/24/20 08/25/20 08/25/20 18:59 06:59 18:59 Intake Total 240 840 Output Total 2450 325 Balance -2450 -85 840 Weight 101.8 kg Intake: Oral 240 840 Output: Urine 2450 325 Uretheral (Palacios) 1700 Other: Voiding Method Indwelling Catheter Indwelling Catheter # Voids 0 - Labs CBC & Chem 7: 08/23/20 07:10 08/25/20 09:02 Labs: Abnormal Lab Results - Last 24 Hours (Table) 08/24/20 08/24/20 08/24/20 Range/Units 11:48 17:24 20:02 Sodium (137-145) mmol/L Potassium (3.5-5.1) mmol/L Carbon Dioxide (22-30) mmol/L BUN (9-20) mg/dL Creatinine (0.66-1.25) mg/dL Glucose (74-99) mg/dL POC Glucose (mg/dL) 213 H 234 H 249 H (75-99) mg/dL 08/25/20 08/25/20 08/25/20 Range/Units 02:18 06:18 09:02 Sodium 131 L (137-145) mmol/L Potassium 6.0 H (3.5-5.1) mmol/L Carbon Dioxide 19 L (22-30) mmol/L BUN 116 H* (9-20) mg/dL Creatinine 3.13 H (0.66-1.25) mg/dL Glucose 255 H (74-99) mg/dL POC Glucose (mg/dL) 215 H 226 H (75-99) mg/dL Microbiology - Last 24 Hours (Table) 08/19/20 21:35 Blood Culture - Preliminary Blood No Growth after 120 hours 08/19/20 21:35 Blood Culture - Preliminary Blood No Growth after 120 hours
[2020-08-25 12:23] LABS: Glucose,Whole Blood 300 mg/dL (75-99)
[2020-08-25] MEDS ORDERED: INSULIN REGULAR 100 UNIT/ML VIAL (IV) IV ONE (12:37)
--- NOTE | 2020-08-25 12:39 | PN ---
PROGRESS NOTE Patient is seen for followup for acute kidney injury. Patient's renal function has been worsening over the last 2-3 days with creatinine today at 3.1 mg/dL from 2.53 on initial admission. No previous labs available for comparison. Patient is currently being diuresed. His Lasix was decreased, however, he remains volume overloaded. A 24 hour urine output documented at 2.7 L. Blood pressure is on the higher side, systolic around 170 this morning. Otherwise, it was 120-127 earlier. The patient states that she is feeling weak. Appetite is fair. PHYSICAL EXAMINATION: On examination today, blood pressure 170/58, heart rate 68 per minute, he is afebrile. Examination of the heart S1, S2. Examination of the lungs, decreased breath sounds at bases. Abdomen is soft, morbidly obese. Examination lower extremities shows bilateral chronic skin changes with chronic edema. [employer] exam grossly intact. LAB: Show sodium of 131, potassium 6.0, chloride 103, CO2 is 19, BUN 116, serum creatinine 3.1. ASSESSMENT: 1. Acute kidney injury, mostly acute tubular necrosis with worsening renal function, possibly cardiorenal as well. Currently maintained on low-dose loop diuretics but patient remains volume overloaded. He has good urine output. I will continue with the Lasix for now. If renal function continues to deteriorate patient may need renal replacement therapy. Currently patient has a Palacios catheter. His echocardiogram shows ejection fraction about 55-60%. Therefore, patient will not benefit from inotropic agents. There are no other nephrotoxic agents on board. 2. 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 3. 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 Baseline creatinine around 2. No previous labs available for comparison currently. 4. History of benign prostatic hypertrophy with urine retention, currently with Palacios catheter. 5. Acute hypoxic respiratory failure secondary to pneumonia, maintained on antibiotics. 6. New onset atrial fibrillation. 7. Hyperkalemia associated with acute kidney injury, elevated blood sugars, currently not on any LINDSAY inhibitors or nonsteroidal anti-inflammatory agents. 8. Metabolic acidosis secondary to renal failure. PLAN: Treat hyperkalemia with IV insulin since blood sugar remains elevated at 255. Repeat chest x-ray. Continue current low-dose Lasix. If patient's chest x-ray is worse I will increase his diuretics. If renal function continues to deteriorate, patient may need renal replacement therapy. Continue with oral sodium bicarb as well as Palacios catheter. MMODL / IJN: [id number] /
[2020-08-25] MEDS: CEFEPIME 1 GM in SODIUM CHLORIDE 0.9% 50 ML IVPB SCH (13:17)
--- NOTE | 2020-08-25 13:58 | XR ---
EXAMINATION TYPE: XR chest 1V portable DATE OF EXAM: 08/25/2020 COMPARISON: Chest x-ray 08/22/2020 HISTORY: Shortness of breath TECHNIQUE: Single frontal view of the chest is obtained. FINDINGS: There is bilateral airspace disease present. Right-sided PICC line is in place, heart is e nlarged. No evident pneumothorax or pleural effusion. IMPRESSION: Correlate for pneumonia, congestive heart failure and pulmonary edema
--- NOTE | 2020-08-25 15:35 | P.PN ---
Subjective 85-year-old male was admitted for acute hypoxic respiratory failure. Patient the is being treated for pneumonia with cefepime so far blood cultures are negative to 7 cultures are not available at this time. Patient is presently on 15 L of oxygen and also on as-needed basis BiPAP. Patient is presently on BiPAP when I evaluated the patient. Patient is making urine patient is on diuretics for congestive heart failure chronic diastolic dysfunction with acute exacerbation. is also obese and probably has obstructive sleep apnea and restrictive lung disease. Patient has osteoarthritis of the left second toe for which patient is also on daptomycin. Patient's Covid 19 was negative. We'll repeat the and of the colon with PCR. Patient had a chest x-ray today showing the pneumonia as well as CHF. Constitutional: Denied any fatigue denied any fever. Cardio vascular: denied any chest pain, palpitations Gastrointestinal denied any nausea vomiting Pulmonary: Denied any shortness of breath cough Neurologic denied any new focal deficits All inpatient medications were reviewed and appropriate changes in these medications as dictated in the interval history and assessment and plan. Objective - Vital Signs Vital signs: Vital Signs Temp 98.1 F 08/25/20 08:00 Pulse 72 08/25/20 12:14 Resp 18 08/25/20 12:00 BP 145/56 08/25/20 12:00 Pulse Ox 90 L 08/25/20 12:00 Intake & Output 08/24/20 08/25/20 08/25/20 18:59 06:59 18:59 Intake Total 240 1080 Output Total 2450 325 Balance -2450 -85 1080 Weight 101.8 kg Intake: Oral 240 1080 Output: Urine 2450 325 Uretheral (Palacios) 1700 Other: Voiding Method Indwelling Catheter Indwelling Catheter # Voids 0 - Exam PHYSICAL EXAMINATION: GENERAL: The patient is alert and oriented x3, not in any acute distress. Obese HEENT: Pupils are round and equally reacting to light. EOMI. No scleral icterus. No conjunctival pallor. Normocephalic, atraumatic. No pharyngeal erythema. No thyromegaly. CARDIOVASCULAR: S1 and S2 present. No murmurs, rubs, or gallops. PULMONARY: Chest is clear to auscultation, no wheezing or crackles. ABDOMEN: Soft, nontender, nondistended, normoactive bowel sounds. No palpable or ganomegaly. MUSCULOSKELETAL: No joint swelling or deformity. EXTREMITIES: No cyanosis, clubbing, bilateral lower extremity edema NEUROLOGICAL: Gross neurological examination did not reveal any focal deficits. SKIN: No rashes. - Labs CBC & Chem 7: 08/23/20 07:10 08/25/20 09:02 Labs: Abnormal Lab Results - Last 24 Hours (Table) 08/24/20 08/24/20 08/25/20 Range/Units 17:24 20:02 02:18 Sodium (137-145) mmol/L Potassium (3.5-5.1) mmol/L Carbon Dioxide (22-30) mmol/L BUN (9-20) mg/dL Creatinine (0.66-1.25) mg/dL Glucose (74-99) mg/dL POC Glucose (mg/dL) 234 H 249 H 215 H (75-99) mg/dL 08/25/20 08/25/20 08/25/20 Range/Units 06:18 09:02 12:00 Sodium 131 L (137-145) mmol/L Potassium 6.0 H (3.5-5.1) mmol/L Carbon Dioxide 19 L (22-30) mmol/L BUN 116 H* (9-20) mg/dL Creatinine 3.13 H (0.66-1.25) mg/dL Glucose 255 H (74-99) mg/dL POC Glucose (mg/dL) 226 H 300 H (75-99) mg/dL Microbiology - Last 24 Hours (Table) 08/19/20 21:35 Blood Culture - Preliminary Blood No Growth after 120 hours 08/19/20 21:35 Blood Culture - Preliminary Blood No Growth after 120 hours Assessment and Plan Plan: 1. Pneumonia suspected gram-negative organism/sepsis - Patient started on IV cefepime; 2. Acute hypoxic respiratory failure; patient currently on BiPAP; secondary to pneumonia and to start failure chronic diastolic dysfunction with acute exacerbation. Patient is on IV Lasix. Patient probably has obstructive sleep apnea and restrictive lung disease as well 3. Acute on chronic kidney disease; patient is making urine but continued to have worsening creatinine may end up needing dialysis as his respiratory status is not improving. 4. Acute osteomyelitis second toe/ MRSA; patient remains on IV daptomycin; ID on board; recommending to continue daptomycin for a total of 6 weeks 5. Essential hypertension; stable on current dose of hydralazine with parameters 6. Diabetes mellitus type 2, uncontrolled with hyperglycemia; Levemir increased to 42 units in the morning; continue to monitor Accu-Cheks every before meals and at bedtime with insulin sliding scale 7. Hypothyroid; Continue with Synthroid 8. BPH with bladder outflow obstruction; Palacios catheter in place; remains on Flomax 9. Paroxysmal atrial flutter fibrillation currently in sinus rhythm; systemic anticoagulation with eliquis 10. Chronic gout; stable on allopurinol DVT prophylaxis; SCDs/systemic anticoagulation CODE STATUS; full code
[2020-08-25 17:18] LABS: Glucose,Whole Blood 215 mg/dL (75-99)
[2020-08-25] MEDS: DOXAZOSIN 4 MG TAB PO SCH (17:44)
[2020-08-25] MEDS: TAMSULOSIN 0.4 MG CAP.ER.24H PO SCH (17:44)
[2020-08-25 20:11] LABS: Glucose,Whole Blood 241 mg/dL (75-99)
--- NOTE | 2020-08-26 00:10 | PN ---
PROGRESS NOTE DATE OF SERVICE: 08/25/2020 REASON FOR FOLLOWUP: 1. Pneumonia. 2. Left second toe osteomyelitis. INTERVAL HISTORY: The patient is afebrile. The patient is breathing more comfortably. Denies having chest pain. He did have a cough with clear sputum now. However, sputum was not collected. No abdominal pain. Pain to the left second toe. PHYSICAL EXAMINATION: Blood pressure 140/60 with a pulse of 75, temperature 98. He is 93% on 3 L high-flow oxygen. General description is an elderly male lying in in no distress. Respiratory system: Unlabored breathing, decreased intensity of breath sounds. No wheeze. HEART: S1, S2. Regular rate and rhythm. ABDOMEN: Soft. No tenderness. Left foot is currently dressed up. No obvious drainage on the dressing. LABS: BUN is 18. creatinine 3.13. DIAGNOSTIC IMPRESSION AND PLAN: 1. Patient admitted to the hospital with fever, increased shortness of breath, and concern for pneumonia. The patient's clinically responded to Cefazolin, to continue, try to obtain a sputum to narrow down antibiotics 2. Patient with left second toe osteomyelitis with MRSA. Continue with Daptomycin. Family at the bedside. Questions were answered. MMODL / IJN: [id number] / AMY
[2020-08-26] MEDS: CEFEPIME 1 GM in SODIUM CHLORIDE 0.9% 50 ML IVPB SCH (02:01)
[2020-08-26 02:03] LABS: Glucose,Whole Blood 176 mg/dL (75-99)
[2020-08-26 06:16] LABS: Glucose,Whole Blood 199 mg/dL (75-99)
[2020-08-26] MEDS: INSULIN DETEMIR (LEVEMIR) 100 UNIT/ML SYR SQ SCH (06:31)
[2020-08-26] MEDS: INSULIN ASPART (NovoLOG) 100 UNIT/ML VIAL SQ SCH (06:31)
[2020-08-26] MEDS: LEVOTHYROXINE 100 MCG TAB PO SCH (06:32)
[2020-08-26] MEDS: CALCIUM CARBONATE LIQUID 500 MG/5 ML CUP PO SCH (06:38)
[2020-08-26] MEDS: IPRATROPIUM-ALBUTEROL 3 ML NEB INHALATION PRN (07:08)
[2020-08-26 07:17] VITALS: PULSE 68
[2020-08-26 08:15] VITALS: BP 130/54; TEMP 97.6
[2020-08-26] MEDS: allopurinoL 100 MG TAB PO SCH (08:15)
[2020-08-26] MEDS: DOCUSATE 100 MG CAP PO SCH (08:15)
[2020-08-26] MEDS: amLODIPine 10 MG TAB PO SCH (08:15)
[2020-08-26] MEDS: hydrALAZINE HCL 25 MG TAB PO SCH (08:15)
[2020-08-26] MEDS: APIXABAN 2.5 MG TABLET PO SCH (08:15)
[2020-08-26] MEDS: SODIUM BICARBONATE TAB 650 MG TAB PO SCH (08:15)
[2020-08-26] MEDS: FUROSEMIDE 10 MG/ML 2 ML VIAL IV SCH (08:18)
[2020-08-26 08:23] VITALS: RESP 26
[2020-08-26 08:45] LABS: Calcium 8.5 mg/dL (8.4-10.2)
[2020-08-26] MEDS ORDERED: EPINEPHrine 10 ML SYRINGE (0.1 MG/ML) ONE (09:00)
[2020-08-26] MEDS ORDERED: DEXTROSE 50% SYRINGE 50 ML IVP ONE (09:00)
[2020-08-26] MEDS ORDERED: SODIUM BICARB 8.4% 50 ML SYR (1 MEQ/ML) ONE ×2 (09:00→09:03)
[2020-08-26] MEDS ORDERED: CALCIUM CHLORIDE 100 MG/ML 10 ML SYRINGE ONE (09:00)
[2020-08-26 09:03] LABS: Glucose,Whole Blood 211 mg/dL (75-99)
[2020-08-26 09:12] LABS: Potassium 6.5 mmol/L (3.5-5.1)
[2020-08-26] MEDS ORDERED: INSULIN REGULAR 100 UNIT in SODIUM CHLORIDE 0.9% 100 ML IV SCH (09:30)
--- NOTE | 2020-08-26 09:35 | P.EN ---
I responded to a CODE BLUE called by nursing staff after patient was found unresponsive with asystole. At that time of my arrival to the room high-quality chest compression was started. We did continue with ACLS protocol for approximately 20 minutes. During that period of time patient continued to receive high-quality chest compression with intermittent bouts check per protocol showing asystole. Patient was intubated and bagged according to the protocol. Patient received multiple doses of epinephrine and 2 A of bicarb. His morning lab work showed evidence of worsening kidney failure with metabolic acidosis and hyperkalemia. He was treated with calcium chloride, IV insulin, and D50. I called his family members including his daughter and grandson or deformity that patient would like to be a full code but does not want to live in a vegetable state. After continuation with this resuscitation effort for approximately 25 minute no return of spontaneous circulation was achieved. I decided to stop the resuscitation process as his chances of meaningful survival are very slim at this point. Please refer to nursing staff documentation for exact time of .
--- NOTE | 2020-09-07 11:41 | P.DS ---
Providers Date of admission: 08/19/20 22:58 Expected date of discharge: 08/26/20 Attending physician: Taiwo Romo Consults: 08/19/20 22:58 Consult Physician Stat Consulting Provider: Jake Bran Consult Reason/Comments: Pulmonology Do you want consulting provider notified?: Already Contacted 08/19/20 23:00 Consult Physician Routine Consulting Provider: Damian Gonzales Consult Reason/Comments: CHF Do you want consulting provider notified?: Yes 08/20/20 20:20 Consult Physician Routine Consulting Provider: Ag Cardenas Consult Reason/Comments: Recent osteomyelitis Do you want consulting provider notified?: Yes 08/22/20 15:26 Consult Physician Routine Consulting Provider: Cuong Smith Consult Reason/Comments: Kidney injury Do you want consulting provider notified?: Yes Primary care physician: [facility] Course: Patient was admitted for sepsis secondary to pneumonia patient had a cardiac pulmonary arrest on 08/26/2020, failed attempt at resuscitation and patient subsequently . Patient Condition at Discharge: Poor Plan - Discharge Summary Discharge Rx Participant: No New Discharge Prescriptions: No Action Na Phos,M-B/Na Phos,Di-Ba [Fleet Adult] 133 ml RECTAL DAILY PRN PRN Reason: Constipation hydrALAZINE HCL [Apresoline] 25 mg PO BID@0800,1700 Apixaban [Eliquis] 2.5 mg PO BID@0800,1700 Levothyroxine Sodium [Synthroid] 100 mcg PO DAILY@0600 Insulin Glargine [Lantus] 20 unit SQ DAILY@0800 Insulin Glargine [Lantus] 15 unit SQ HS@2100 Allopurinol [Zyloprim] 100 mg PO DAILY@0800 Magnesium Hydroxide [Milk of Magnesia] 2,400 ml PO DAILY PRN PRN Reason: Constipation Magic Butt Paste 1 applic TOPICAL TID bisacodyL [Dulcolax] 10 mg RECTAL DAILY PRN PRN Reason: Constipation INSULIN LISPRO (humaLOG) [humaLOG] See Protocol SQ ACHS Terazosin HCl [Hytrin] 10 mg PO DAILY@1700 amLODIPine [Norvasc] 10 mg PO DAILY@0800 Lasix 10mg/Ml 40 mg IV ONCE Discharge Medication List Allopurinol [Zyloprim] 100 mg PO DAILY@0800 08/19/20 [History] Apixaban [Eliquis] 2.5 mg PO BID@0800,1700 08/19/20 [History] INSULIN LISPRO (humaLOG) [humaLOG] See Protocol SQ ACHS 08/19/20 [History] Insulin Glargine [Lantus] 15 unit SQ HS@2100 08/19/20 [History] Insulin Glargine [Lantus] 20 unit SQ DAILY@0800 08/19/20 [History] Lasix 10mg/Ml 40 mg IV ONCE 08/19/20 [History] Levothyroxine Sodium [Synthroid] 100 mcg PO DAILY@0600 08/19/20 [History] Magic Butt Paste 1 applic TOPICAL TID 08/19/20 [History] Magnesium Hydroxide [Milk of Magnesia] 2,400 ml PO DAILY PRN 08/19/20 [History] Na Phos,M-B/Na Phos,Di-Ba [Fleet Adult] 133 ml RECTAL DAILY PRN 08/19/20 [History] Terazosin HCl [Hytrin] 10 mg PO DAILY@1700 08/19/20 [History] amLODIPine [Norvasc] 10 mg PO DAILY@0800 08/19/20 [History] bisacodyL [Dulcolax] 10 mg RECTAL DAILY PRN 08/19/20 [History] hydrALAZINE HCL [Apresoline] 25 mg PO BID@0800,1700 08/19/20 [History] Follow up Appointment(s)/Referral(s): Yaniv Fisher DO [Primary Care Provider] - 1-2 days Jake Bran MD [STAFF PHYSICIAN] - 1 Week Discharge Disposition: - Preliminary Cause of Preliminary Cause of : Severe sepsis secondary to pneumonia
== END 2020-08-26 11:59 | disposition expired | DRG 871 ==
LOC: EC 20:49 → 3SCARD 22:58
PROVIDERS: ADMIT Hospitalist; ATTEND Hospitalist
PROC: 5A0945A Assistance with Respiratory Ventilation, 24-96 Consecutive Hours, High Flow/Velocity Cannula (ICD-10-PCS; 2020-08-21)
PROC: 5A09457 Assistance with Respiratory Ventilation, 24-96 Consecutive Hours, Continuous Positive Airway Pressure (ICD-10-PCS; 2020-08-22)
PROC: 0BH17EZ Insertion of Endotracheal Airway into Trachea, Via Natural or Artificial Opening (ICD-10-PCS; principal; 2020-08-26)
PROC: 5A12012 Performance of Cardiac Output, Single, Manual (ICD-10-PCS; 2020-08-26)
DX: A41.50 Gram-negative sepsis, unspecified (principal); J96.01 Acute respiratory failure with hypoxia; N17.0 Acute kidney failure with tubular necrosis; J15.6 Pneumonia due to other Gram-negative bacteria; I50.33 Acute on chronic diastolic (congestive) heart failure; I13.0 Hypertensive heart and chronic kidney disease with heart failure and stage 1 through stage 4 chronic kidney disease, or unspecified chronic kidney disease; E87.1 Hypo-osmolality and hyponatremia; Z68.42 Body mass index [BMI] 45.0-49.9, adult; J44.0 Chronic obstructive pulmonary disease with (acute) lower respiratory infection; M86.172 Other acute osteomyelitis, left ankle and foot; E87.2 Acidosis; I48.92 Unspecified atrial flutter; I48.0 Paroxysmal atrial fibrillation; R65.20 Severe sepsis without septic shock; E11.69 Type 2 diabetes mellitus with other specified complication; E11.65 Type 2 diabetes mellitus with hyperglycemia; E11.42 Type 2 diabetes mellitus with diabetic polyneuropathy; Z20.822 Contact with and (suspected) exposure to COVID-19; E66.01 Morbid (severe) obesity due to excess calories; L89.152 Pressure ulcer of sacral region, stage 2; E11.51 Type 2 diabetes mellitus with diabetic peripheral angiopathy without gangrene; N18.32 Chronic kidney disease, stage 3b; E11.22 Type 2 diabetes mellitus with diabetic chronic kidney disease; Z79.4 Long term (current) use of insulin; I27.20 Pulmonary hypertension, unspecified; B95.62 Methicillin resistant Staphylococcus aureus infection as the cause of diseases classified elsewhere; N40.1 Benign prostatic hyperplasia with lower urinary tract symptoms; R33.8 Other retention of urine; E78.5 Hyperlipidemia, unspecified; E03.9 Hypothyroidism, unspecified; M1A.9XX0 Chronic gout, unspecified, without tophus (tophi); Z79.899 Other long term (current) drug therapy; Z79.01 Long term (current) use of anticoagulants; Z79.890 Hormone replacement therapy; Z87.891 Personal history of nicotine dependence; Z86.14 Personal history of Methicillin resistant Staphylococcus aureus infection; E87.5 Hyperkalemia; I35.0 Nonrheumatic aortic (valve) stenosis; Z68.34 Body mass index [BMI] 34.0-34.9, adult; G47.33 Obstructive sleep apnea (adult) (pediatric); I46.9 Cardiac arrest, cause unspecified; K21.9 Gastro-esophageal reflux disease without esophagitis; M19.072 Primary osteoarthritis, left ankle and foot; N32.0 Bladder-neck obstruction; I89.0 Lymphedema, not elsewhere classified; J98.4 Other disorders of lung; R31.9 Hematuria, unspecified
CPT/HCPCS: 36415; 36600; 71045; 76770; 80048; 80053; 81001; 82805; 83605; 83880; 84145; 84484; 85025; 85610; 85730; 86140; 87040; 87449; 87635; 92950; 93005; 93306; 94640; 94660; 94760; 99285